=== PATIENT | male | born 1960 | race African-American/Black ===

== ENCOUNTER 2017-09-30 12:05 | Emergency (ER) | payer OTHER, SELFPAY ==
[2017-09-30 12:59] LABS: Absolute Lymphocytes (CBC) 1.4 K/uL (0.7-4.9); Absolute Monocytes 1.3 K/uL (0.1-1.3); Absolute Neutrophil 8.6 K/uL (1.8-8.0); Basophils % 0.3 % (0-1.3); Eosinophils % 0.8 % (0-4.4); Hematocrit 40.7 % (39.6-49.0); Lymphocytes % 12.1 % (15.3-44.8); MCH 28.7 pg (27.0-35.0); MCV 85.4 fL (80-100); MPV 7.6 fL (7.6-11.3); Monocytes % 11.6 % (3.3-12.3); RBC Red Blood Cell Count 4.76 M/uL (4.33-5.43)
--- NOTE | 2017-09-30 13:05 | RAD REPORT ---
EXAM DESCRIPTION: CT - Stone Protocol - 09/30/2017 12:54 pm CLINICAL HISTORY: Flank pain. flank pain COMPARISON: No comparisons TECHNIQUE: Axial images were obtained without oral or IV contrast. Lack of contrast limits solid org an and vascular assessment. The [id number] spans the entirety of the system partially obscuring uppermost abdomen and lung bases. Coronal reformatted images were obtained and reviewed. All CT scans are performed using dose optimization technique as appropriate and may include automated exposure control or mA/KV adjustment according to patient size. FINDINGS: The lower lung garcia are clear. Imaged portions of the liver and spleen show no suspicious findings on non-contrast imaging. The panc reas and adrenal glands are normal. Moderate enlargement of the left kidney is seen with moderate left hydronephrosis and hydroureter, ca used by a 8 mm stone (700 HU) in the distal left ureter. Several enlarged left-sided retroperitoneal lymph nodes are seen. Small nonobstructing 4 mm stone is present in the right kidney midpole. No bowel obstruction, free air, free fluid or abscess. Normal appendix noted.Colonic diverticulosis i s seen without diverticulitis. Aortic atherosclerosis. No significant bony abnormality. IMPRESSION: 8 mm stone (700 HU) in the distal left ureter resulting in moderate left hydroureter and hydronephrosis. 4 mm nonobstructive right renal calculus.
[2017-09-30 13:28] LABS: Albumin 2.5 g/dL (3.4-5.0); Bilirubin Direct 0.1 mg/dL (0-0.2); Bilirubin Total 0.4 mg/dL (0.2-1.0); Potassium 3.5 mmol/L (3.5-5.1); Protein, Total 8.3 g/dL (6.4-8.2)
[2017-09-30] MEDS ORDERED: TAMSULOSIN 0.4 MG SR CAP ONE (13:34)
[2017-09-30] MEDS ORDERED: KETOROLAC 30 MG/ML INJ ONE (13:34)
[2017-09-30] MEDS ORDERED: NA CHLORIDE 0.9% 1,000 ML ONE (13:34)
--- NOTE | 2017-09-30 14:58 | ER ---
Nurse's Notes [facility] Name: Jayant Alamo Age: 57 yrs Sex: Male : 1960 Arrival Date: 09/30/2017 Time: 12:11 Bed 8 Private MD: None, None Diagnosis: Hydronephrosis with renal and ureteral calculous obstruction-Left Presentation: 09/30 12:12 Presenting complaint: Patient states: i started feeling pain on my groin area, on my R hj and L lower abdomen area, reports fever and sweats; reports nausea and vomiting; reports constipation;. Transition of care: patient was not received from another setting of care. Onset of symptoms was September 30, 2017. Risk Assessment: Do you want to hurt yourself or someone else? Patient reports no desire to harm self or others. Initial Sepsis Screen: Does the patient meet any 2 criteria? No. Patient's initial sepsis screen is negative. Does the patient have a suspected source of infection? No. Patient's initial sepsis screen is negative. Care prior to arrival: None. 12:12 Method Of Arrival: Ambulatory 12:12 Acuity: JAIDA 3 hj Triage Assessment: 12:14 General: Appears in no apparent distress. uncomfortable, Behavior is calm, cooperative, hj appropriate for age. Pain: Complains of pain in right lower quadrant and left lower quadrant. GI: Reports lower abdominal pain, constipation, nausea, vomiting. Historical: - Allergies: 12:14 No Known Allergies; hj - Home Meds: 12:14 None [Active]; hj - PMHx: 12:14 Hypertension; Hyperlipidemia; heart problems; hj - PSHx: 12:14 Heart stents; hj - Immunization history:: Adult Immunizations not immunized. - Social history:: Smoking status: Patient uses tobacco products, smokes one-half pack cigarettes per day, Patient uses alcohol, on a daily basis. - Ebola Screening: : Patient negative for fever greater than or equal to 101.5 degrees Fahrenheit, and additional compatible Ebola Virus Disease symptoms Patient denies exposure to infectious person Patient denies travel to an Ebola-affected area in the 21 days before illness onset. Screenin:16 Abuse screen: Denies threats or abuse. Denies injuries from another. Nutritional hj screening: No deficits noted. Tuberculosis screening: No symptoms or risk factors identified. Fall Risk None identified. Assessment: 12:16 GI: Bowel sounds Abd is soft Abdomen is tender to palpation. hj 12:28 General: Appears in no apparent distress. uncomfortable, Behavior is calm, cooperative, aj1 appropriate for age. Pain: Complains of pain in anterior aspect of left lateral abdomen, posterior aspect of left lateral abdomen, left lower quadrant and left femoral area Pain does not radiate. Pain currently is 9 out of 10 on a pain scale. Quality of pain is described as stabbing. Neuro: Level of Consciousness is awake, alert, obeys commands, Oriented to person, place, time, situation, Speech is normal, Facial symmetry appears normal. Cardiovascular: Patient's skin is warm and dry. Respiratory: Airway is patent Respiratory effort is even, unlabored, Respiratory pattern is regular, symmetrical. GI: Abdomen is round Bowel sounds present X 4 quads. Abd is soft X 4 quads Abdomen is tender to palpation in left lower quadrant Reports constipation, nausea, vomiting, Last bowel movement 4 to 5 days ago. : Denies burning with urination, urinary frequency, urgency. EENT: No signs and/or symptoms were reported regarding the EENT system. Derm: No signs and/or symptoms reported regarding the dermatologic system. Skin is pink, warm \T\ dry. normal. Musculoskeletal: No signs and/or symptoms reported regarding the musculoskeletal system. Circulation, motion, and sensation intact. 12:52 Reassessment: Patient transported to [place] via wheelchair. aj1 13:30 Reassessment: Patient appears in no apparent distress at this time. No changes from aj1 previously documented assessment. Patient and/or family updated on plan of care and expected duration. Pain level reassessed. Patient is alert, oriented x 3, equal unlabored respirations, skin warm/dry/pink. Patient reports continued pain. Notified Mamie Cowan NP. Order received. 14:45 Reassessment: Patient appears in no apparent distress at this time. Patient and/or aj1 family updated on plan of care and expected duration. Pain level reassessed. Patient is alert, oriented x 3, equal unlabored respirations, skin warm/dry/pink. Patient states that he is feeling better since administration of IV Toradol. 15:45 Reassessment: Patient appears in no apparent distress at this time. No changes from aj1 previously documented assessment. Patient and/or family updated on plan of care and expected duration. Pain level reassessed. Patient is alert, oriented x 3, equal unlabored respirations, skin warm/dry/pink. Vital Signs: 12:15 BP 115 / 82; Pulse 93; Resp 18; Temp 97.6(TE); Pulse Ox 99% on R/A; Weight 90.72 kg; hj Height 6 ft. 2 in. (187.96 cm); Pain 9/10; 13:40 BP 119 / 79; Pulse 88; Resp 18; Pulse Ox 99% on R/A; aj1 14:45 BP 121 / 83; Pulse 81; Resp 18; Pulse Ox 95% on R/A; aj1 16:02 BP 117 / 62; Pulse 85; Resp 18; Pulse Ox 97% ; aj1 12:15 Body Mass Index 25.68 (90.72 kg, 187.96 cm) ED Course: 12:11 Patient arrived in ED. mr 12:11 None, None is Private Physician. mr 12:13 Triage completed. hj 12:16 Arm band placed on right wrist. hj 12:16 Patient has correct armband on for positive identification. hj 12:18 Paul Cowan, POOJA is PHCP. pm1 12:18 Amaury Smith MD is Attending Physician. pm1 12:22 Katelyn Diamond, RAMSES is Primary Nurse. aj1 12:28 No provider procedures requiring assistance completed. aj1 12:47 Initial lab(s) drawn, by sc, sent to lab. Inserted saline lock: 20 gauge in right aj1 antecubital area, using aseptic technique. Blood collected. 12:52 CT completed. Patient moved to CT via wheelchair. Patient moved back from CT. cw1 12:54 Stone Protocol In Process Unspecified. EDMS 14:57 Hunter No MD is Referral Physician. pm1 16:02 IV discontinued, intact, bleeding controlled, No redness/swelling at site. Pressure aj1 dressing applied. Administered Medications: 13:39 Drug: NS 0.9% 1000 ml Route: IV; Rate: 1000 ml; Site: right antecubital; aj1 16:02 Follow up: IV Status: Completed infusion; IV Intake: 1000ml aj1 13:39 Drug: TORadol 30 mg Route: IVP; Site: right antecubital; aj1 16:03 Follow up: Response: No adverse reaction aj1 13:40 Drug: Flomax 0.4 mg Route: PO; aj1 16:03 Follow up: Response: No adverse reaction aj1 16:00 Drug: Rocephin 1 grams Route: IV; Rate: calculated rate; Site: right antecubital; aj 16:03 Follow up: IV Status: Completed infusion; IV Intake: 10ml aj1 16:00 Drug: Ciprofloxacin 500 mg Route: PO; aj1 16:03 Follow up: Response: No adverse reaction aj1 Intake: 16:02 IV: 1000ml; Total: 1000ml. aj1 16:03 IV: 10ml; Total: 1010ml. aj1 Outcome: 14:58 Discharge ordered by MD. pm1 16:03 Discharged to home ambulatory. aj1 16:03 Condition: good 16:03 Discharge instructions given to patient, Instructed on discharge instructions, follow up and referral plans. no drinking with medication, no driving heavy equipment, medication usage, Demonstrated understanding of instructions, follow-up care, medications, Prescriptions given X 3. 16:04 Patient left the ED. aj1 Addendum: 10/03/2017 09:45 Addendum: Culture Results: Positive urine culture. No further action required. Bacteria s s sensitive to prescribed antibiotic. Signatures: Dispatcher [employer] EDMS Katelyn Diamond RN RN aj1 Jami Thompson Shelby, RN RN ss Woodley, Crystal 1 Rashawn Patricia RN RN hj Marinas, Patrick, POOJA OBSTETRICS TECHNICIAN pm1 Corrections: (The following items were deleted from the chart) 09/30 12:17 12:15 Pulse 93bpm; Resp 18bpm; Pulse Ox 99% RA; Temp 97.6F Temporal; 90.72 kg; Height 6 hj ft. 2 in.; BMI: 25.6; Pain 9/10; hj 12:18 12:15 Pulse 93bpm; Resp 18bpm; Pulse Ox 99% RA; Temp 97.6F Temporal; 90.72 kg; Height 6 hj ft. 2 in.; BMI: 25.6; Pain 9/10; hj
--- NOTE | 2017-09-30 14:58 | EDPHYS ---
Physician Documentation [facility] Name: Jayant Alamo Age: 57 yrs Sex: Male : 1960 Arrival Date: 09/30/2017 Time: 12:11 Bed 8 Private MD: None, None ED Physician Amaury mSith HPI: 09/30 16:00 This 57 yrs old Black Male presents to ER via Ambulatory with complaints of Left flank pm1 pain. 16:00 The patient complains of pain in the left low back. The pain does not radiate. Onset: pm1 The symptoms/episode began/occurred 5 day(s) ago. Modifying factors: The symptoms are alleviated by nothing. the symptoms are aggravated by nothing. Associated signs and symptoms: Pertinent negatives: dysuria, fever, nausea, vomiting. Severity of pain: in the emergency department the pain has improved. The patient has not experienced similar symptoms in the past. The patient has not recently seen a physician. Patient with left flank pain for 5 days. Patient reports improvement in pain from initial onset, however he wants to get his left flank pain evaluated prior to a trip to [place]. Historical: - Allergies: 12:14 No Known Allergies; hj - Home Meds: 12:14 None [Active]; hj - PMHx: 12:14 Hypertension; Hyperlipidemia; heart problems; hj - PSHx: 12:14 Heart stents; hj - Immunization history:: Adult Immunizations not immunized. - Social history:: Smoking status: Patient uses tobacco products, smokes one-half pack cigarettes per day, Patient uses alcohol, on a daily basis. - Ebola Screening: : Patient negative for fever greater than or equal to 101.5 degrees Fahrenheit, and additional compatible Ebola Virus Disease symptoms Patient denies exposure to infectious person Patient denies travel to an Ebola-affected area in the 21 days before illness onset. ROS: 16:00 Constitutional: Negative for fever, chills, and weight loss, Eyes: Negative for injury, pm1 pain, redness, and discharge, ENT: Negative for injury, pain, and discharge, Neck: Negative for injury, pain, and swelling, Cardiovascular: Negative for chest pain, palpitations, and edema, Respiratory: Negative for shortness of breath, cough, wheezing, and pleuritic chest pain, Abdomen/GI: Negative for abdominal pain, nausea, vomiting, diarrhea, and constipation. 16:00 : Negative for injury, bleeding, discharge, and swelling, MS/Extremity: Negative for injury and deformity, Skin: Negative for injury, rash, and discoloration, Neuro: Negative for headache, weakness, numbness, tingling, and seizure. 16:00 Back: Positive for flank pain, on the left, Negative for injury or acute deformity, decreased range of motion. Exam: 16:00 Constitutional: This is a well developed, well nourished patient who is awake, alert, pm1 and in no acute distress. Head/Face: Normocephalic, atraumatic. Eyes: Pupils equal round and reactive to light, extra-ocular motions intact. Lids and lashes normal. Conjunctiva and sclera are non-icteric and not injected. Cornea within normal limits. Periorbital areas with no swelling, redness, or edema. ENT: Nares patent. No nasal discharge, no septal abnormalities noted. Tympanic membranes are normal and external auditory canals are clear. Oropharynx with no redness, swelling, or masses, exudates, or evidence of obstruction, uvula midline. Mucous membranes moist. Neck: Trachea midline, no thyromegaly or masses palpated, and no cervical lymphadenopathy. Supple, full range of motion without nuchal rigidity, or vertebral point tenderness. No Meningismus. Chest/axilla: Normal chest wall appearance and motion. Nontender with no deformity. No lesions are appreciated. Cardiovascular: Regular rate and rhythm with a normal S1 and S2. No gallops, murmurs, or rubs. Normal PMI, no JVD. No pulse deficits. Respiratory: Lungs have equal breath sounds bilaterally, clear to auscultation and percussion. No rales, rhonchi or wheezes noted. No increased work of breathing, no retractions or nasal flaring. Abdomen/GI: Soft, non-tender, with normal bowel sounds. No distension or tympany. No guarding or rebound. No evidence of tenderness throughout. 16:00 Skin: Warm, dry with normal turgor. Normal color with no rashes, no lesions, and no evidence of cellulitis. MS/ Extremity: Pulses equal, no cyanosis. Neurovascular intact. Full, normal range of motion. 16:00 Back: pain, is absent, ROM is normal, normal spinal alignment noted, CVA tenderness, that is mild, is noted on the left, vertebral tenderness, is not appreciated, muscle spasm, is not present. 16:00 Neuro: Orientation: is normal, Motor: is normal, moves all fours, Gait: is steady, at a normal pace, without difficulty. Vital Signs: 12:15 BP 115 / 82; Pulse 93; Resp 18; Temp 97.6(TE); Pulse Ox 99% on R/A; Weight 90.72 kg; hj Height 6 ft. 2 in. (187.96 cm); Pain 9/10; 13:40 BP 119 / 79; Pulse 88; Resp 18; Pulse Ox 99% on R/A; aj1 14:45 BP 121 / 83; Pulse 81; Resp 18; Pulse Ox 95% on R/A; aj1 16:02 BP 117 / 62; Pulse 85; Resp 18; Pulse Ox 97% ; aj1 12:15 Body Mass Index 25.68 (90.72 kg, 187.96 cm) MDM: 12:27 Patient medically screened. pm1 14:55 Data reviewed: vital signs. Data interpreted: Pulse oximetry: on room air is 95 %. pm1 Interpretation: normal. 14:55 Counseling: I had a detailed discussion with the patient and/or guardian regarding: the pm1 historical points, exam findings, and any diagnostic results supporting the discharge/admit diagnosis, lab results, radiology results, the need for further work-up and treatment in the hospital, due to 8 mm kidney stone. 14:55 Refusal of service: The patient/guardian displays adequate decision making capability pm1 and despite a detailed discussion of alternatives, benefits, risks, and consequences refuses: Admission to the hospital for further work-up and treatment, Patient wants to go home to try to pass the stone himself. Patient has a trip planned with his brother to go out of state. 09/30 12:30 Order name: Urine Microscopic Only; Complete Time: 18:05 pm1 09/30 12:43 Order name: Basic Metabolic Panel; Complete Time: 13:29 EDID 09/30 12:43 Order name: Stone Protocol; Complete Time: 13:29 EDMS 09/30 12:43 Order name: CBC with Automated Diff; Complete Time: 13:29 EDID 09/30 12:43 Order name: Lipase; Complete Time: 13:29 EDMS 09/30 12:43 Order name: Liver (Hepatic) Function; Complete Time: 13:29 [facility] 09/30 15:25 Order name: Urine Dipstick--Ancillary (enter results); Complete Time: 18:05 sp 09/30 15:48 Order name: Urine Culture [facility] 09/30 12:30 Order name: IV Saline Lock; Complete Time: 12:51 pm1 09/30 12:30 Order name: Labs collected and sent; Complete Time: 12:51 pm 09/30 12:30 Order name: Urine Dipstick-Ancillary (obtain specimen); Complete Time: 12:51 pm1 Administered Medications: 13:39 Drug: NS 0.9% 1000 ml Route: IV; Rate: 1000 ml; Site: right antecubital; [facility] 16:02 Follow up: IV Status: Completed infusion; IV Intake: 1000ml [facility] 13:39 Drug: TORadol 30 mg Route: IVP; Site: right antecubital; aj 16:03 Follow up: Response: No adverse reaction [facility] 13:40 Drug: Flomax 0.4 mg Route: PO; aj1 16:03 Follow up: Response: No adverse reaction [facility] 16:00 Drug: Rocephin 1 grams Route: IV; Rate: calculated rate; Site: right antecubital; aj 16:03 Follow up: IV Status: Completed infusion; IV Intake: 10ml aj 16:00 Drug: Ciprofloxacin 500 mg Route: PO; aj1 16:03 Follow up: Response: No adverse reaction [facility] Disposition: 17:28 Co-signature as Attending Physician, Amaury Smith MD I agree with the assessment and kdr plan of care. Disposition: 09/30/17 14:58 Discharged to Home. Impression: Hydronephrosis with renal and ureteral calculous obstruction - Left. - Condition is Stable. - Discharge Instructions: Kidney Stones, Hydronephrosis, Dietary Guidelines to Help Prevent Kidney Stones. - Prescriptions for Tylenol- Codeine #3 300-30 mg Oral Tablet - take 2 tablets by ORAL route every 6 hours As needed; 20 tablet. Flomax 0.4 mg Oral Capsule, Sust. Release 24 hr - take 1 capsule by ORAL route once daily 1/2 hour following the same meal each day; 30 capsule. Cipro 500 mg Oral Tablet - take 1 tablet by ORAL route every 12 hours for 10 days; 20 tablet. - Medication Reconciliation Form, Thank You Letter, Antibiotic Education, Prescription Opioid Use form. - Follow up: Emergency Department; When: As needed; Reason: Worsening of condition. Follow up: Hunter No MD; When: 1 - 2 days; Reason: Recheck today's complaints, Continuance of care, Re-evaluation by your physician. - Problem is new. - Symptoms have improved. Signatures: Dispatcher [employer] EDID Katelyn Diamond RN RN aj1 Amaury Smith MD MD [facility] Rashawn Patricia RN RN hj Paul Cowan, REAL ESTATE PHOTOGRAPHER REAL ESTATE PHOTOGRAPHER pm1 Corrections: (The following items were deleted from the chart) 13:20 13:14 Stone Protocol+CT.RAD.BRZ ordered. EDID EDMS 14:55 13:14 BASIC METABOLIC PANEL+C.LAB.BRZ ordered. EDID EDMS 14:55 13:14 CBC+H.LAB.BRZ ordered. EDID EDMS 14:55 13:14 HEPATIC FUNCTION+C.LAB.BRZ ordered. EDID EDMS 14:55 13:14 LIPASE+C.LAB.BRZ ordered. EDID EDMS 16:04 14:58 09/30/2017 14:58 Discharged to Home. Impression: Hydronephrosis with renal and aj1 ureteral calculous obstruction - Left. Condition is Stable. Forms are Medication Reconciliation Form, Thank You Letter, Antibiotic Education, Prescription Opioid Use. Follow up: Emergency Department; When: As needed; Reason: Worsening of condition. Follow up: Hunter No; When: 1 - 2 days; Reason: Recheck today's complaints, Continuance of care, Re-evaluation by your physician. Problem is new. Symptoms have improved. pm1
[2017-09-30 15:47] LABS: Urine Blood 2+ (NEG); Urine Glucose NEGATIVE (NEG); Urine Protein 1+ (NEG); Urine pH 5.5 (5.0-7.0)
[2017-09-30 15:47] LABS: Urine Bacteria >50 /HPF (NONE SEEN); Urine Culture Reflex Order REFLEXED; Urine RBC 20-50 /HPF (NONE SEEN)
[2017-09-30] MEDS ORDERED: CIPROFLOXACIN HCL 500 MG TAB ONE (15:56)
[2017-09-30] MEDS ORDERED: CEFTRIAXONE/SWI 1gm 1 GM/10 ML SYR ONE (15:56)
== END 2017-09-30 16:04 | disposition home or self-care (01) ==
LOC: ER 12:05
DX: N13.2 Hydronephrosis with renal and ureteral calculous obstruction (principal); I10 Essential (primary) hypertension; F17.210 Nicotine dependence, cigarettes, uncomplicated; Z95.818 Presence of other cardiac implants and grafts
CPT/HCPCS: 36415; 74176; 76377; 80048; 80076; 83690; 85025; 87077; 87086; 87088; 87186; 96361; 96374; 96375; 99284; J0696; J7030; 81003; 81015

== ENCOUNTER 2020-01-21 08:52 | Day surgery (SDC) | payer OTHER ==
[2020-01-21 09:26] LABS: Absolute Lymphocytes (CBC) 1.3 K/uL (0.7-4.9); Basophils % 0.8 % (0-1.3); Hematocrit 30.1 % (39.6-49.0); Lymphocytes % 14.7 % (15.3-44.8); MPV 7.3 fL (7.6-11.3); RBC Red Blood Cell Count 3.84 M/uL (4.33-5.43)
[2020-01-21] MEDS ORDERED: Ringers Lactate 1,000 ML IV ONE (09:26)
[2020-01-21] MEDS ORDERED: CEFAZOLIN/SWI 1gm 1 GM/10 ML SYR ONE (09:26)
[2020-01-21] MEDS ORDERED: MIDAZOLAM HCL 2 MG/2 ML INJ ONE (09:53)
[2020-01-21] MEDS ORDERED: propofoL 200 MG/20 ML VIAL IV ONE (09:53)
[2020-01-21] MEDS ORDERED: LIDOCAINE 1% MPF 5 ML VIAL ONE (09:53)
[2020-01-21] MEDS ORDERED: FENTANYL CITR 100 MCG/2 ML ONE (09:53)
[2020-01-21 09:55] VITALS: O2SAT 100
[2020-01-21 10:17] LABS: Anisocytosis 1+; Blood Morphology Comment NOTED (NOT SEEN); Macrocytosis SLIGHT; Platelet Estimate ADEQ
[2020-01-21] MEDS ORDERED: Phenylephrine HCl 10 MG/ML 1 ML VIAL ONE (10:32)
[2020-01-21] MEDS ORDERED: NS 0.9% VIAL 10 ML ONE (10:32)
[2020-01-21] MEDS ORDERED: KETOROLAC 30 MG/ML INJ ONE (10:53)
[2020-01-21] MEDS ORDERED: ONDANSETRON 4 MG/2 ML VIAL ONE (10:53)
[2020-01-21] MEDS ORDERED: dexAMETHasone 4 MG/ML VIAL ONE (10:54)
[2020-01-21] MEDS ORDERED: Mastisol Adhesive Liq ONE (11:06)
--- NOTE | 2020-01-21 11:12 | RAD REPORT ---
EXAM DESCRIPTION: RAD - Fluoroscopy <1 Hour - 01/21/2020 11:03 am CLINICAL HISTORY: Venous catheter insertion. PORT A CATH COMPARISON: No comparisons FINDINGS: Fluoroscopic imaging is submitted from placement of a venous catheter. Details of the pro cedure not available. Fluoroscopy time: 0.6 seconds
--- NOTE | 2020-01-21 11:44 | RAD REPORT ---
EXAM DESCRIPTION: RAD - Chest Single View - 01/21/2020 11:32 am CLINICAL HISTORY: S/P PORT A CATH PLACEMENT Chest pain. COMPARISON: No comparisons FINDINGS: Portable technique limits examination quality. Right-sided Port-A-Cath has been placed. Tip is in the SVC. No postprocedure pneumothorax.
[2020-01-21] MEDS ORDERED: PROMETHAZINE INJ 25 MG/ML AMP ONE (11:48)
[2020-01-21] MEDS ORDERED: MORPHINE 4 MG/ML SYR ONE (11:48)
[2020-01-21] MEDS ORDERED: CODEINE 30MG/APAP 300MG TAB PO ONE (12:07)
--- NOTE | 2020-01-21 12:07 | OP ---
Date of Procedure: 01/21/2020 Surgeon: Jonathan Kline MD Ruby Rails Developer: None. Preoperative Diagnosis: Stomach cancer. Postoperative Diagnosis: Stomach cancer. Procedure: Placement of right IJ Port-A-Cath and interpretation of intraoperative fluoroscopy. Estimated Blood Loss: Minimal. Specimen: None. Findings: Normal anatomy. Anesthesia: General. Complications: None. Condition: The patient tolerated the procedure well in stable condition and taken to Recovery in goo d general condition. Procedure In Detail: The patient was brought to the OR and placed in supine position. General anest hesia was begun. The patient was prepped and draped in the usual sterile fashion. Marcaine 0.5% inf iltrated locally. An 18-gauge needle was used to access the right IJ vein. Guidewire was passed. P osition was confirmed with fluoroscopy. A 3 cm counterincision was made on the right anterior chest and a pocket created. Tunneling device was used to tunnel the catheter between the 2 wounds and then Seldinger technique was used. Tip of the catheter was placed at the SVC right atrial junction. The n, the catheter was cut to appropriate size and attached to the Port-A-Cath device. Port-A-Cath salomon ce was attached to the subcutaneous tissue with 3-0 Vicryl. Port was flushed with heparin and packed with heparin with good blood flow and then 3-0 chromic was used to reapproximate the subcutaneous ti ssues and close the skin. Sterile dressing was applied. The patient was awakened and taken to [facility] in good general condition. Discharge Note: The patient will get a chest x-ray in Recovery if okay. The patient will be dischar ged to home. Disposition: Home. Condition: Stable. Discharge Instructions: Resume home medications and diet. Activity as tolerated. No heavy lifting. Remove outer dressing in 2 days. Shower. Keep Steri-Strips on at all times. Follow up in [facility] in 2 weeks. Call for appointment. Follow up with cancer Center. Tylenol No. 3 one tablet p.o. q .4 p.r.n. pain. /MODL Voice ID: [id number] Report ID: [id number]
[2020-01-21] MEDS ORDERED: CODEINE 30MG/APAP 300MG TAB ONE (12:18)
[2020-01-21 13:43] VITALS: TEMP 97
[2020-01-21 13:44] VITALS: BP 105/72
== END 2020-01-21 12:35 | disposition home or self-care (01) ==
LOC: OR 08:52
PROVIDERS: ATTEND Surgery
PROC: 05HM33Z Insertion of Infusion Device into Right Internal Jugular Vein, Percutaneous Approach (ICD-10-PCS; principal; 2020-01-21 10:00)
DX: C16.9 Malignant neoplasm of stomach, unspecified (principal)
CPT/HCPCS: 85025; 36415; 71045; 36561; J2704; J1100; J2550; J2370; J3010; J0690; J7120; J2405; C1788; 76000; J2250

== ENCOUNTER 2020-04-09 03:00 | Inpatient (IN) | payer OTHER ==
--- OUTSIDE RECORDS SUMMARY | 2020-04-09 03:04 | XMS REPORT | Continuity of Care Document ---
:1960 Author Organization [facility] t Address [address] [place] [address] Care Team Providers Name Role Phone Unavailable Unavailable Unavailable Problems This patient has no known problems. Allergies, Adverse Reactions, Alerts This patient has no known allergies or adverse reactions. Medications This patient has no known medications. Procedures This patient has no known procedures. Encounters Start End Encounter Admission Attending Care Care Encounter Source Date/Time Date/Time Type Type Clinicians Facility Department ID 2020-02-19 2020-02-19 Outpatient [facility] [id number] [facility] 00:00:00 00:00:00 [facility] ent Clinics 2020-01-22 2020-01-22 Outpatient [facility] [id number] [facility] 00:[facility] 00:00:00 [facility] ent Clinics Results This patient has no known results.
[2020-04-09] MEDS ORDERED: ONDANSETRON 4 MG/2 ML VIAL ONE (04:19)
[2020-04-09] MEDS ORDERED: MORPHINE 2 MG/ML SYR ONE (04:19)
[2020-04-09 04:33] LABS: Absolute Lymphocytes (CBC) 0.4 K/uL (0.7-4.9); Basophils % 0.2 % (0-1.3); Hematocrit 34.9 % (39.6-49.0); Lymphocytes % 8.8 % (15.3-44.8); Protime INR 1.19; RBC Red Blood Cell Count 4.02 M/uL (4.33-5.43)
[2020-04-09 04:57] LABS: ALT/SGPT 22 U/L (12-78); AST/SGOT 25 U/L (15-37); Albumin 2.4 g/dL (3.4-5.0); Alkaline Phosphatase 100 U/L (45-117); BUN Blood Urea Nitrogen 16 mg/dL (7-18); Bicarbonate 31 mmol/L (21-32); Bilirubin Direct < 0.1 mg/dL (0-0.2); Bilirubin Total 0.2 mg/dL (0.2-1.0); Glucose Level 100 mg/dL (74-106); Lipase 41 U/L (73-393); Magnesium 2.7 mg/dL (1.8-2.4); NT PRO-BNP 7893 pg/mL (<125); Potassium 3.9 mmol/L (3.5-5.1); Protein, Total 6.5 g/dL (6.4-8.2); Sodium Level 149 mmol/L (136-145); Troponin (Emerg Dept Use Only) 0.09 ng/mL (0.0-0.045)
[2020-04-09 05:38] LABS: Anisocytosis 2+; Blood Morphology Comment NOTED (NOT SEEN); Platelet Estimate ADEQ; White Blood Cell Scan OK (OK)
--- NOTE | 2020-04-09 06:44 | EDPHYS ---
Physician Documentation [facility] Name: Jayant Alamo Age: 60 yrs Sex: Male : 1960 Arrival Date: 04/09/2020 Time: 03:00 Bed 7 Private MD: ED Physician Larry Whiteside HPI: 04/09 03:55 This 60 yrs old Black Male presents to ER via Ambulatory with complaints of Shortness mh7 Of Breath, Chest Pain. 03:55 The patient or guardian reports chest pain that is located primarily in the substernal mh7 area. Onset: today. The pain does not radiate. Associated signs and symptoms: Pertinent positives: cough, shortness of breath, Pertinent negatives: abdominal pain, diaphoresis, dizziness, headache, lower extremity pain, lower extremity swelling, lightheadedness, nausea, near syncope, palpitations, recent travel, syncope, vomiting. The chest pain is described as tightness. Duration: The patient or guardian reports multiple episodes, that are intermittent, that wax and wane. Modifying factors: The symptoms are alleviated by nothing. the symptoms are aggravated by nothing. Severity of pain: At its worst the pain was moderate today, in the emergency department the pain has improved moderately. Historical: - Allergies: 03:47 No Known Allergies; ea - PMHx: 03:47 Hypertension; heart problems; Hyperlipidemia; stomach cancer; ea - PSHx: 03:47 Heart stents; ea - Immunization history:: Adult Immunizations up to date. - Social history:: Smoking status: Patient reports the use of cigarette tobacco products, smokes one-half pack cigarettes per day. ROS: 03:55 Constitutional: Negative for fever, chills, and weight loss, Eyes: Negative for injury, mh7 pain, redness, and discharge, ENT: Negative for injury, pain, and discharge, Neck: Negative for injury, pain, and swelling, Abdomen/GI: Negative for abdominal pain, nausea, vomiting, diarrhea, and constipation, Back: Negative for injury and pain, : Negative for injury, bleeding, discharge, and swelling, MS/Extremity: Negative for injury and deformity, Skin: Negative for injury, rash, and discoloration, Neuro: Negative for headache, weakness, numbness, tingling, and seizure, Psych: Negative for depression, anxiety, suicide ideation, homicidal ideation, and hallucinations, Allergy/Immunology: Negative for hives, rash, and allergies, Endocrine: Negative for neck swelling, polydipsia, polyuria, polyphagia, and marked weight changes, Hematologic/Lymphatic: Negative for swollen nodes, abnormal bleeding, and unusual bruising. Exam: 03:55 Constitutional: This is a well developed, well nourished patient who is awake, alert, mh7 and in no acute distress. Head/Face: Normocephalic, atraumatic. Eyes: Pupils equal round and reactive to light, extra-ocular motions intact. Lids and lashes normal. Conjunctiva and sclera are non-icteric and not injected. Cornea within normal limits. Periorbital areas with no swelling, redness, or edema. Neck: Trachea midline, no thyromegaly or masses palpated, and no cervical lymphadenopathy. Supple, full range of motion without nuchal rigidity, or vertebral point tenderness. No Meningismus. Chest/axilla: Normal chest wall appearance and motion. Nontender with no deformity. No lesions are appreciated. Cardiovascular: Regular rate and rhythm with a normal S1 and S2. No gallops, murmurs, or rubs. Normal PMI, no JVD. No pulse deficits. 03:55 Back: No spinal tenderness. No costovertebral tenderness. Full range of motion. Skin: Warm, dry with normal turgor. Normal color with no rashes, no lesions, and no evidence of cellulitis. MS/ Extremity: Pulses equal, no cyanosis. Neurovascular intact. Full, normal range of motion. Neuro: Awake and alert, GCS 15, oriented to person, place, time, and situation. Cranial nerves II-XII grossly intact. Motor strength 5/5 in all extremities. Sensory grossly intact. Cerebellar exam normal. Normal gait. Psych: Awake, alert, with orientation to person, place and time. Behavior, mood, and affect are within normal limits. 03:55 Respiratory: the patient does not display signs of respiratory distress, Respirations: normal, Breath sounds: rhonchi, that are mild, are scattered, Respiratory rate: 18 06:38 ECG was reviewed by the Attending Physician. manuel Vital Signs: 03:43 BP 106 / 81; Pulse 93; Resp 19; Temp 98.2; Pulse Ox 95% on R/A; Weight 68.04 kg; Height ea 6 ft. 2 in. (187.96 cm); Pain 9/10; 07:00 BP 109 / 86; Pulse 94; Resp 19; Pulse Ox 94% on R/A; rb3 08:00 BP 101 / 86; Pulse 99; Resp 18; Pulse Ox 92% ; rb3 08:58 BP 101 / 84; Pulse 107; Resp 19; Pulse Ox 95% on R/A; rb3 09:58 BP 106 / 83; Pulse 95; Resp 17; Pulse Ox 95% ; rb3 11:00 BP 100 / 83; Pulse 95; Resp 18; Pulse Ox 94% ; rb3 12:00 BP 110 / 92; Pulse 91; Resp 16; Pulse Ox 93% ; rb3 13:00 BP 113 / 87; Pulse 96; Resp 19; Pulse Ox 94% ; rb3 14:00 BP 111 / 85; Pulse 108; Resp 18; Pulse Ox 92% ; rb3 15:00 BP 104 / 81; Pulse 94; Resp 17; Pulse Ox 94% ; rb3 16:00 BP 109 / 83; Pulse 91; Resp 17; Pulse Ox 94% ; rb3 03:43 Body Mass Index 19.26 (68.04 kg, 187.96 cm) ea MDM: 06:23 Patient medically screened. manuel 06:53 Differential diagnosis: abnormal EKG, coronary artery disease hiatal hernia, pleurisy, manuel pulmonary embolus, stable angina, unstable angina. HEART Score: History: Moderately Suspicious (1), ECG: Non specific repolarization disturbance / LBTB / PM (1), Age: > 45 and < 65 years (1), Risk Factors: > or = 3 Risk factors for atherosclerotic disease (2), [Hypercholesterolemia] [Hypertension] [+ Family HX] Troponin: < or = 1 x Normal Limit (0). The patient was not given aspirin in the Emergency Department. Not indicated due to patient's past medical history. The patient's deep vein thrombosis risk score was calculated as follows: Total Score: 0. This patient was found to be at low risk for a deep vein thrombosis by using the Well's assessment criteria. The patient's pulmonary embolism risk score was calculated as follows: malignancy Total Score: 0-2 points. This patient was found to be at low risk for a pulmonary embolism by using the Well's assessment criteria. ADALGISA Risk Score: 1 - Three or more CAD risk factors, 1- Known CAD, 1 - Elevated Cardiac Markers, TOTAL SCORE = 3. Data reviewed: vital signs, nurses notes, lab test result(s), EKG, radiologic studies, CT scan, plain films. Data interpreted: playground monitor: rate is 93 beats/min, rhythm is regular, Pulse oximetry: on room air is 95 %. Test interpretation: by ED physician or midlevel provider: ECG, plain radiologic studies. Counseling: I had a detailed discussion with the patient and/or guardian regarding: the historical points, exam findings, and any diagnostic results supporting the discharge/admit diagnosis, lab results, radiology results, the need for further work-up and treatment in the hospital. 04/09 03:46 Order name: Basic Metabolic Panel; Complete Time: 04:59 7 04/09 03:46 Order name: CBC with Diff; Complete Time: 05:51 7 04/09 03:46 Order name: LFT's; Complete Time: 04:59 7 04/09 03:46 Order name: Magnesium; Complete Time: 04:59 7 04/09 03:46 Order name: NT PRO-BNP; Complete Time: 04:59 7 04/09 03:46 Order name: PT-INR; Complete Time: 04:59 7 04/09 03:46 Order name: Troponin (emerg Dept Use Only); Complete Time: 04:59 7 04/09 03:46 Order name: Lipase; Complete Time: 04:59 7 04/09 04:48 Order name: CBC Smear Scan; Complete Time: 05:51 [facility] 04/09 06:37 Order name: Blood Culture Adult (2) [facility] 04/09 06:37 Order name: COVID-19 [facility] 04/09 07:02 Order name: C-Reactive Protein [facility] 04/09 07:02 Order name: D-Dimer [facility] 04/09 07:02 Order name: Ferritin [facility] 04/09 07:02 Order name: Lactate [facility] 04/09 07:02 Order name: Lactic Dehydrogenase [facility] 04/09 07:02 Order name: Procalcitonin [facility] 04/09 07:02 Order name: Troponin I [facility] 04/09 07:09 Order name: CBC with Automated Diff [facility] 04/09 07:09 Order name: CBC with Automated Diff [facility] 04/09 07:09 Order name: Comprehensive Metabolic Panel [facility] 04/09 07:09 Order name: Comprehensive Metabolic Panel [facility] 04/09 07:09 Order name: Lactate [facility] 04/09 07:09 Order name: Lactate [facility] 04/09 07:09 Order name: Lipid Profile [facility] 04/09 07:09 Order name: Lipid Profile [facility] 04/09 07:09 Order name: Magnesium [facility] 04/09 07:09 Order name: Magnesium [facility] 04/09 07:09 Order name: NT PRO-BNP [facility] 04/09 07:09 Order name: NT PRO-BNP [facility] 04/09 03:46 Order name: XRAY Chest (1 view) [facility] 04/09 03:46 Order name: EKG; Complete Time: 03:47 [facility] 04/09 03:46 Order name: Cardiac monitoring; Complete Time: 04:17 [facility] 04/09 03:46 Order name: EKG - Nurse/Tech; Complete Time: 03:54 [facility] 04/09 03:46 Order name: IV Saline Lock; Complete Time: 04:19 [facility] 04/09 03:46 Order name: Labs collected and sent; Complete Time: 04:17 [facility] 04/09 03:46 Order name: O2 Per Protocol; Complete Time: 03:54 [facility] 04/09 03:46 Order name: O2 Sat Monitoring; Complete Time: 03:54 [facility] 04/09 05:52 Order name: CT Chest For PE Angio [facility] 04/09 07:09 Order name: CONS Physician Consult [facility] 04/09 07:09 Order name: CONS Physician Consult [facility] 04/09 07:09 Order name: Heart Healthy [facility] 04/09 07:09 Order name: Phosphorus [facility] 04/09 07:09 Order name: Phosphorus [facility] 04/09 07:09 Order name: Troponin I [facility] 04/09 07:09 Order name: Troponin I [facility] 04/09 07:09 Order name: Troponin I [facility] 04/09 07:11 Order name: C-Reactive Protein [facility] 04/09 07:11 Order name: Ferritin [facility] 04/09 09:50 Order name: SARS-COV-2 RT PCR EDPR EC:38 Rate is 94 beats/min. Rhythm is regular. QRS [place] is Normal. [place] interval is normal. QRS manuel interval is normal. QT interval is prolonged at 515 msec. No Q waves. T waves are Normal. Clinical impression: NSR w/ Non-specific ST/T Changes. Administered Medications: 04:17 Drug: morphine 2 mg Route: IVP; Site: right antecubital; rv 07:05 Follow up: Response: No adverse reaction; Marked relief of symptoms; Pain is decreased; rv RASS: Alert and Calm (0) 04:17 Drug: Zofran (Ondansetron) 4 mg Route: IVP; Site: right antecubital; rv 07:05 Follow up: Response: No adverse reaction rv 06:43 Not Given (Duplicate Order): Aspirin 162 mg PO once manuel 06:43 Not Given (Duplicate Order): Lovenox 70 mg Sub-Q once manuel 07:04 Drug: Pepcid 20 mg Route: IVP; Site: right antecubital; rv 07:05 Follow up: Response: No adverse reaction rv 07:04 Drug: Rocephin 1 grams Route: IV; Rate: per protocol; Site: right antecubital; rv 07:30 Follow up: Response: No adverse reaction; IV Status: Completed infusion rb3 07:04 Drug: Zithromax 500 mg Route: IVPB; Infused Over: 1 hrs; Site: right antecubital; rv 08:10 Follow up: Response: No adverse reaction; IV Status: Completed infusion rb3 07:04 Drug: Eliquis 5 mg Route: PO; rv 07:35 Follow up: Response: No adverse reaction rb3 09:04 Not Given (Javier held medication due to BP 103/79): Lopressor 25 mg PO once rb3 09:04 Not Given (BP 101/86): Lasix 20 mg IVP once rb3 Disposition: 06:53 Critical Care:. [facility] Disposition: 04/09/20 06:43 Hospitalization ordered by Roxann Block for Inpatient Admission. Preliminary diagnosis are Chest pain, unspecified, Pneumonia, unspecified organism - diffuse right lung, interstitial, Dyspnea, Unspecified diastolic (congestive) heart failure, Pleural effusion in conditions classified elsewhere, Cardiomegaly. - Bed requested for Telemetry/MedSurg (Inpatient). - Status is Inpatient Admission. rb3 - Condition is Fair. - Problem is new. - Symptoms have improved. Critical care time excluding procedures: 06:53 Critical care time: Bedside Care: 20 minutes, Consultation: 10 minutes. Total time: 30 manuel minutes Signatures: Dispatcher [employer] EDMS Larry Whiteside MD MD cha Williams, Irene, RN RN iw Brandon, Abraham em1 Nelda Hendrix, RN Bud Beck ea, RN RN Gino Pineda MD MD [facility] Mirna Beard RN RN rb3 Corrections: (The following items were deleted from the chart) 06:57 06:43 Hospitalization Ordered by Roxann Block MD for Inpatient Admission. Preliminary [facility] diagnosis is Chest pain, unspecified; Pneumonia, unspecified organism - diffuse right lung, interstitial; Dyspnea. Bed requested for Telemetry/MedSurg (Inpatient). Status is Inpatient Admission. Condition is Fair. Problem is new. Symptoms have improved. [facility] 12:16 06:57 04/09/2020 06:43 Hospitalization Ordered by Roxann Block MD for Inpatient iw Admission. Preliminary diagnosis is Chest pain, unspecified; Pneumonia, unspecified organism - diffuse right lung, interstitial; Dyspnea; Unspecified diastolic (congestive) heart failure; Pleural effusion in conditions classified elsewhere; Cardiomegaly. Bed requested for Telemetry/MedSurg (Inpatient). Status is Inpatient Admission. Condition is Fair. Problem is new. Symptoms have improved. [facility] 15:32 12:16 04/09/2020 06:43 Hospitalization Ordered by Roxann Block MD for Inpatient em1 Admission. Preliminary diagnosis is Chest pain, unspecified; Pneumonia, unspecified organism - diffuse right lung, interstitial; Dyspnea; Unspecified diastolic (congestive) heart failure; Pleural effusion in conditions classified elsewhere; Cardiomegaly. Bed requested for [facility] ER HOLD. Status is Inpatient Admission. Condition is Fair. Problem is new. Symptoms have improved. 16:56 15:32 04/09/2020 06:43 Hospitalization Ordered by Roxann Block MD for Inpatient rb3 Admission. Preliminary diagnosis is Chest pain, unspecified; Pneumonia, unspecified organism - diffuse right lung, interstitial; Dyspnea; Unspecified diastolic (congestive) heart failure; Pleural effusion in conditions classified elsewhere; Cardiomegaly. Bed requested for Telemetry/MedSurg (Inpatient). Status is Inpatient Admission. Condition is Fair. Problem is new. Symptoms have improved. em1
--- NOTE | 2020-04-09 06:44 | ER ---
Nurse's Notes [facility] Name: aJyant Alamo Age: 60 yrs Sex: Male : 1960 Arrival Date: 04/09/2020 Time: 03:00 Bed 7 Private MD: Diagnosis: Chest pain, unspecified;Pneumonia, unspecified organism-diffuse right lung, interstitial;Dyspnea;Unspecified diastolic (congestive) heart failure;Pleural effusion in conditions classified elsewhere;Cardiomegaly Presentation: 04/09 03:43 Chief complaint: Patient states: Reports he started having chest pressure, SOB and ea congestion that started after his chemo. Pt reports pain /. Coronavirus screen: At this time, the client does not indicate any symptoms associated with coronavirus-19. Ebola Screen: No symptoms or risks identified at this time. Initial Sepsis Screen: Does the patient meet any 2 criteria? No. Patient's initial sepsis screen is negative. Does the patient have a suspected source of infection? No. Patient's initial sepsis screen is negative. Risk Assessment: Do you want to hurt yourself or someone else? Patient reports no desire to harm self or others. Onset of symptoms was April 09, 2020. 03:43 Method Of Arrival: Ambulatory ea 03:43 Acuity: JAIDA 3 ea Triage Assessment: 03:48 General: Appears uncomfortable, Behavior is appropriate for age. Pain: Complains of ea pain in chest. Respiratory: Reports shortness of breath Onset: The symptoms/episode began/occurred today, the patient has mild shortness of breath. Historical: - Allergies: 03:47 No Known Allergies; ea - PMHx: 03:47 Hypertension; heart problems; Hyperlipidemia; stomach cancer; ea - PSHx: 03:47 Heart stents; ea - Immunization history:: Adult Immunizations up to date. - Social history:: Smoking status: Patient reports the use of cigarette tobacco products, smokes one-half pack cigarettes per day. Screenin:46 Abuse screen: Denies threats or abuse. Nutritional screening: No deficits noted. ea Tuberculosis screening: No symptoms or risk factors identified. Fall Risk None identified. Assessment: 04:15 Cardiovascular: Rhythm is regular. Respiratory: Airway is patent Respiratory effort is rv even, unlabored, Breath sounds are coarse bilaterally. 07:03 General: Appears in no apparent distress. comfortable, Behavior is calm, cooperative. rb3 Pain: Complains of pain in chest. Neuro: Level of Consciousness is awake, alert, obeys commands, Oriented to person, place, time, situation. Cardiovascular:. Respiratory: Airway is patent Respiratory effort is even, unlabored, Respiratory pattern is regular, symmetrical. Derm: Skin is dry, Skin is normal, Skin temperature is warm. 08:00 Reassessment: Patient appears in no apparent distress at this time. Patient and/or rb3 family updated on plan of care and expected duration. Pain level reassessed. Patient is alert, oriented x 3, equal unlabored respirations, skin warm/dry/pink. pt. is watching TV. 08:58 Reassessment: Patient appears in no apparent distress at this time. No changes from rb3 previously documented assessment. 10:00 Reassessment: Patient appears in no apparent distress at this time. Patient and/or rb3 family updated on plan of care and expected duration. Pain level reassessed. Patient is alert, oriented x 3, equal unlabored respirations, skin warm/dry/pink. 11:00 Reassessment: Patient appears in no apparent distress at this time. No changes from rb3 previously documented assessment. Pt. is watching TV. 11:41 Reassessment: Patient appears in no apparent distress at this time. Gave the pt. some rb3 ice water. 12:33 Reassessment: Patient appears in no apparent distress at this time. Patient and/or rb3 family updated on plan of care and expected duration. Pain level reassessed. Patient is alert, oriented x 3, equal unlabored respirations, skin warm/dry/pink. 13:30 Reassessment: Patient appears in no apparent distress at this time. No changes from rb3 previously documented assessment. Pt. is watching TV. 14:30 Reassessment: Patient appears in no apparent distress at this time. Patient and/or rb3 family updated on plan of care and expected duration. Pain level reassessed. Patient is alert, oriented x 3, equal unlabored respirations, skin warm/dry/pink. 15:30 Reassessment: Patient appears in no apparent distress at this time. Pt. is watching TV, rb3 gave the pt a cup of ice water. 16:03 Reassessment: Unable to give report at this time, the nurse is currently giving report rb3 to a facility. 16:15 Reassessment: Patient appears in no apparent distress at this time. Patient and/or rb3 family updated on plan of care and expected duration. Pain level reassessed. Patient is alert, oriented x 3, equal unlabored respirations, skin warm/dry/pink. No complaints at this time. 16:23 Reassessment: Gave report to RAMSES Razo. Information from the SBAR was given, all rb3 questions asked and answered. Vital Signs: 03:43 BP 106 / 81; Pulse 93; Resp 19; Temp 98.2; Pulse Ox 95% on R/A; Weight 68.04 kg; Height ea 6 ft. 2 in. (187.96 cm); Pain 9/10; 07:00 BP 109 / 86; Pulse 94; Resp 19; Pulse Ox 94% on R/A; rb3 08:00 BP 101 / 86; Pulse 99; Resp 18; Pulse Ox 92% ; rb3 08:58 BP 101 / 84; Pulse 107; Resp 19; Pulse Ox 95% on R/A; rb3 09:58 BP 106 / 83; Pulse 95; Resp 17; Pulse Ox 95% ; rb3 11:00 BP 100 / 83; Pulse 95; Resp 18; Pulse Ox 94% ; rb3 12:00 BP 110 / 92; Pulse 91; Resp 16; Pulse Ox 93% ; rb3 13:00 BP 113 / 87; Pulse 96; Resp 19; Pulse Ox 94% ; rb3 14:00 BP 111 / 85; Pulse 108; Resp 18; Pulse Ox 92% ; rb3 15:00 BP 104 / 81; Pulse 94; Resp 17; Pulse Ox 94% ; rb3 16:00 BP 109 / 83; Pulse 91; Resp 17; Pulse Ox 94% ; rb3 03:43 Body Mass Index 19.26 (68.04 kg, 187.96 cm) ea ED Course: 03:00 Patient arrived in ED. cl3 03:22 Gino Pineda MD is Attending Physician. mh7 03:26 Bud Nascimento RN is Primary Nurse. rv 03:45 Triage completed. ea 03:46 Patient has correct armband on for positive identification. Bed in low position. Call ea light in reach. Side rails up X2. bus driver/monitor on. Pulse ox on. NIBP on. 03:48 Arm band placed on right wrist. Patient placed in an exam room, on a stretcher, on ea engine monitor, on pulse oximetry. 04:03 XRAY Chest (1 view) In Process Unspecified. EDMS 04:10 Inserted saline lock: 20 gauge in right antecubital area, using aseptic technique. rv Blood collected. 04:10 Initial lab(s) drawn, by me, sent to lab. rv 06:23 Attending Physician role handed off by Gino Pineda MD manuel 06:23 Larry Whiteside MD is Attending Physician. mnauel 06:27 CT Chest For PE Angio In Process Unspecified. EDMS 06:40 Roxann Block MD is Hospitalizing Provider. manuel 07:40 First set of blood cultures drawn by me. Inserted saline lock: 22 gauge in left dh3 forearm, using aseptic technique. Blood collected. 07:47 add on labs drawn by me and sent to lab. dh3 16:42 No provider procedures requiring assistance completed. rb3 16:42 Patient admitted, IV remains in place. rb3 Administered Medications: 04:17 Drug: morphine 2 mg Route: IVP; Site: right antecubital; rv 07:05 Follow up: Response: No adverse reaction; Marked relief of symptoms; Pain is decreased; rv RASS: Alert and Calm (0) 04:17 Drug: Zofran (Ondansetron) 4 mg Route: IVP; Site: right antecubital; rv 07:05 Follow up: Response: No adverse reaction rv 06:43 Not Given (Duplicate Order): Aspirin 162 mg PO once manuel 06:43 Not Given (Duplicate Order): Lovenox 70 mg Sub-Q once manuel 07:04 Drug: Pepcid 20 mg Route: IVP; Site: right antecubital; rv 07:05 Follow up: Response: No adverse reaction rv 07:04 Drug: Rocephin 1 grams Route: IV; Rate: per protocol; Site: right antecubital; rv 07:30 Follow up: Response: No adverse reaction; IV Status: Completed infusion rb3 07:04 Drug: Zithromax 500 mg Route: IVPB; Infused Over: 1 hrs; Site: right antecubital; rv 08:10 Follow up: Response: No adverse reaction; IV Status: Completed infusion rb3 07:04 Drug: Eliquis 5 mg Route: PO; rv 07:35 Follow up: Response: No adverse reaction rb3 09:04 Not Given (Javier held medication due to BP 103/79): Lopressor 25 mg PO once rb3 09:04 Not Given (BP 101/86): Lasix 20 mg IVP once rb3 Outcome: 06:43 Decision to Hospitalize by Provider. manuel 16:42 Admitted to Med/surg accompanied by tech, via wheelchair, room 210, with chart, Report rb3 called to RAMSES Razo 16:42 Condition: stable 16:42 Instructed on the need for admit. 16:42 Patient left the ED. rb3 Signatures: Dispatcher [employer] EDCA Larry Whiteside MD MD cha Herrera, Jessenia 3 Nelda Hendrix RN Bud Beck ea, RN RN rv Lewis, Charde 3 Gino Pineda MD MD [facility] Mirna Beard, RAMSES RN rb3 Corrections: (The following items were deleted from the chart) 16:57 16:56 Patient left the ED. rb3 rb3
[2020-04-09] MEDS ORDERED: NA CHLORIDE 0.9% 250 ML ONE (07:00)
[2020-04-09] MEDS ORDERED: ASPIRIN 81 MG CHEWABLE TABLET ONE (07:00)
[2020-04-09] MEDS ORDERED: CEFTRIAXONE 1000 MG/VIAL ONE (07:00)
[2020-04-09] MEDS ORDERED: ENOXAPARIN 80 MG/0.8 ML SQ ONE (07:00)
[2020-04-09] MEDS ORDERED: AZITHROMYCIN 500 MG INJ IVPB ONE (07:00)
[2020-04-09] MEDS ORDERED: METOPROLOL TAR 25 MG TAB ONE (07:00)
[2020-04-09] MEDS ORDERED: FAMOTIDINE 20 MG/2 ML VIAL IV ONE (07:01)
[2020-04-09] MEDS ORDERED: ACETAMINOPHEN 500 MG TAB PO PRN (07:02)
[2020-04-09] MEDS ORDERED: ONDANSETRON 4 MG/2 ML VIAL IV PRN (07:02)
[2020-04-09] MEDS ORDERED: APIXABAN 5 MG TABLET ONE (07:13)
[2020-04-09] MEDS ORDERED: NA CHLORIDE 0.9% 1,000 ML IV SCH (08:00)
[2020-04-09] MEDS ORDERED: FUROSEMIDE 20 MG/ 2ML VIAL ONE (08:03)
[2020-04-09 08:25] LABS: Ferritin 598.5 ng/mL (26-388); Troponin I 0.11 ng/mL (0.0-0.045)
--- NOTE | 2020-04-09 08:42 | RAD REPORT ---
EXAM DESCRIPTION: RAD - Chest Single View - 04/09/2020 4:03 am CLINICAL HISTORY: CHEST PAIN Chest pain. COMPARISON: Chest Single View dated 01/21/2020; Chest For Pe Angio dated 04/09/2020 FINDINGS: Portable technique limits examination quality. Moderate bilateral interstitial opacities likely representing interstitial pneumonia or interstitial pulmonary edema. Small bilateral pleural effusions. The heart is mildly enlarged in size. Right-sided venous catheter its tip in the SVC.
[2020-04-09] MEDS ORDERED: APIXABAN 5 MG TABLET PO SCH (09:00)
[2020-04-09] MEDS ORDERED: ENOXAPARIN 40 MG/0.4 ML SQ SCH (09:00)
[2020-04-09] MEDS ORDERED: CEFTRIAXONE/SWI 1gm 1 GM/10 ML SYR IV SCH (12:00)
--- NOTE | 2020-04-09 13:39 | CON ---
Date of Consultation: 04/09/2020 Reason For Consultation: Chest pain and borderline elevated troponin. History Of Present Illness: This is a middle-aged male, history of coronary artery disease status po st stent placement in the past, hypertension, stomach cancer, on chemo and radiation, presented due t o cough with chest pain and shortness of breath. Chest pain is not related to exertion and completel y subsided by now. Does not have any nausea, vomiting, or diarrhea. No bleeding and patient has bee n taken Eliquis on a chronic basis as well. Past Medical History: As outlined above in HPI. Medications: Refer to reconciliation sheet for detailed list. Social History: He is a smoker, 1 pack per day. Does not drink. Does not use drugs. Family History: No premature coronary artery disease or cancer. Physical Examination: Vital Signs: Temperature is 98.4, pulse 74, breathing at 18, blood pressure 134/74. General: Pleasant, middle-aged male, in no apparent distress. Head and Neck: Pupils are equal, react to light. Intact eye movements. No JVD. No cervical lympha denopathy. Neck: Supple. Thyroid is not enlarged. Lungs: Clear to auscultation bilaterally. No rhonchi, rales, or crackles. No accessory muscle use. Heart: Regular rate and rhythm. No extra sounds. Abdomen: Soft, nontender. Bowel sounds positive. No organomegaly. No tenderness. Extremities: No clubbing, cyanosis. Intact pulses. Skin: No rashes. Neurologic: Alert, awake, oriented x3. No acute focal deficits associated. Investigations: Troponin 0.11, the second set; first set was 0.09, creatinine is 0.94. EKG; T-wave inversion in lateral leads, which is old. Assessment And Plan: 1.Chest pain with known history of coronary artery disease and borderline troponin leak. Admit, do serial sets of cardiac enzymes and please obtain an echocardiogram. Start on aspirin and Plavix. Tr oponin trends up to higher level. Patient might require coronary angiogram and informed that if that is the case, we will consider transfer based on the patient progress. Also, please check COVID-19 s tatus on him. 2.Elevated NT-proBNP with chest pain. Please obtain echocardiogram to evaluate for any wall motion abnormality and the filling pressures and challenge with a dose of Lasix 40 mg IV and reassess the re sponse. These findings could be suggestive of acute congestive heart failure, even though clinically he does not look fluid overloaded, so pneumonia is a possibility as well. Again recommended challen ge with 1 dose of Lasix 40 mg IV and re-evaluate with a chest x-ray. SR/MODL Voice ID: [id number] Report ID: [id number]
--- NOTE | 2020-04-09 16:47 | RAD REPORT ---
EXAM DESCRIPTION: CT Angiography Chest With Intravenous Contrast CLINICAL HISTORY: The patient is 60 years old and is Male; Chest pain;SOB TECHNIQUE: Axial computed tomographic angiography images of the chest with intravenous contrast. S agittal and coronal reformatted images were created and reviewed. This CT exam was performed using one or more of the following dose reduction techniques: automated exposure control, adjustment of t he mA and/or kV according to patient size, and/or use of iterative reconstruction technique. MIP re constructed images were created and reviewed. COMPARISON: No relevant prior studies available. FINDINGS: Pulmonary arteries: No PE identified. Aorta: No acute findings. No thoracic aortic aneurysm. Lungs: Left lower lobe consolidation with left lower lobe peribronchial thickening. Thickened interlobular septa bilaterally. Pleural space: Small bilateral pleural effusions. No pneumothorax. Heart: Moderate cardiomegaly. No significant pericardial effusion. Mediastinum: Enlarged subcarinal lymph nodes. Bones/joints: No acute fracture. No dislocation. Soft tissues: Unremarkable. Lymph nodes: See above. Stomach and bowel: Previous gastric surgery, stomach incompletely evaluated. Tubes, lines and devices: Right-sided chest port with the catheter tip in SVC. IMPRESSION: 1. Interstitial edema with small bilateral pleural effusions. 2. Left lower lobe consolidation with left lower lobe peribronchial thickening. 3. No PE identified. 4. Additional non-emergent findings as above. Electronically signed by: Libby Cobos MD 04/09/2020 6:39 AM WHEELAGE CLERK Due to temporary technical issues with the PACS/Fluency reporting system, reports are being signed by the in house radiologists without review as a courtesy to insure prompt reporting. The interpreting radiologist is fully responsible for the content of the report
[2020-04-09] MEDS: CEFTRIAXONE/SWI 1gm 1 GM/10 ML SYR IV SCH (18:55)
--- NOTE | 2020-04-09 19:09 | P.HP ---
Certification for Inpatient Patient admitted to: Inpatient With expected LOS: >2 Midnights Patient will require the following post-hospital care: None Practitioner: I am a practitioner with admitting privileges, knowledge of patient current condition, hospital course, and medical plan of care. Services: Services provided to patient in accordance with Admission requirements found in Title 42 Section 412.3 of the Code of Federal Regulations Patient History Date of Service: 04/09/20 Reason for admission: Pneumonia; CP /o ACS History of Present Illness: Patient is a 60yo who was admitted to the hospital with chest discomfort. Patient has a history of Coronary artery disease, hypertension, dyslipidemia, and he has had a prior stent placed. Patient had just finished chemotherapy for stomach cancer. He was having pain towards the end of it. Pain was mainly in the sternal region. Patient was short of breath. Patient was having some sternal pressure as well. Patient came to the emergency room for further evaluation. In the emergency room patient's troponins were elevated. Decision was made to admit the patient to the hospital for further evaluation. Allergies No Known Allergies Allergy (Verified 04/09/20 20:41) Home Medications: Apixaban [Eliquis] 5 mg PO BID 01/21/20 - Past Medical/Surgical History -: Hypertension -: Dyslipidemia -: Coronary artery disease -: Stomach cancer -: Coronary artery disease with stent placement - Family History Father Family History: Reviewed- Non-Contributory - Social History Smoking Status: Never smoker Alcohol use: No CD- Drugs: No Review of Systems 10-point ROS is otherwise unremarkable Physical Examination - Vital Signs Temperature: 97.9 F Blood Pressure: 114/83 Pulse: 101 Respirations: 19 Pulse Ox (%): 90 - Physical Exam General: Alert, In no apparent distress, Oriented x3 HEENT: Atraumatic, PERRLA, Mucous membr. moist/pink, EOMI, Sclerae nonicteric Neck: Supple, 2+ carotid pulse no bruit, No LAD, Without JVD or thyroid abnormality Respiratory: Clear to auscultation bilaterally, Normal air movement Cardiovascular: Regular rate/rhythm, Normal S1 S2, No murmurs Gastrointestinal: Normal bowel sounds, Soft and benign, Non-distended, No tenderness Musculoskeletal: No clubbing, No swelling, No tenderness Neurological: Normal speech, Normal strength at 5/5 x4 extr, Normal tone, Sensation intact, Cranial nerves 3-12 intact, Normal affect Lymphatics: No axilla or inguinal lymphadenopathy - Studies Laboratory Data (last 24 hrs) 04/09/20 04:10: PT 14.0 H, INR 1.19 04/09/20 04:10: WBC 5.1, Hgb 11.3 L, Hct 34.9 L, Plt Count 264 04/09/20 04:10: Sodium 149 H, Potassium 3.9, BUN 16, Creatinine 0.94, Glucose 100, Magnesium 2.7 H, Total Bilirubin 0.2, AST 25, ALT 22, Alkaline Phosphatase 100, Lipase 41 L Assessment & Plan - Problems (Diagnosis) (1) Chest pain, rule out acute myocardial infarction Current Visit: Yes Status: Acute (2) Presence of stent in coronary artery in patient with coronary artery disease Current Visit: Yes Status: Acute (3) Hypertension Current Visit: Yes Status: Acute (4) Dyslipidemia Current Visit: Yes Status: Acute (5) History of stomach cancer Current Visit: Yes Status: Acute - Plan 1. Serial troponins and EKG 2. Appreciate Cardiology consultation 3. Echocardiogram and further intervention per Cardiology 4. Anti-platelet therapy, anti coagulation, beta-lou, statin, and O2 as needed 5. IV morphine for pain 6. Nitro p.r.n. 7. GI and DVT prophylaxis Discharge Plan: Home Plan to discharge in: Greater than 2 days - Advance Directives Does patient have a Living Will: No Does patient have a Durable POA for Healthcare: No - Code Status/Comfort Care Code Status Assessed: Yes Code Status: Full Code Critical Care: No Time Spent Managing PTS Care (In Minutes): 40
[2020-04-09] MEDS: APIXABAN 5 MG TABLET PO SCH (20:39)
[2020-04-09] MEDS: MORPHINE 2 MG/ML SYR IV PRN (21:39)
[2020-04-09] MEDS: BENZONATATE 100 MG CAP PO PRN (21:39)
[2020-04-10] MEDS: MORPHINE 2 MG/ML SYR IV PRN (04:23)
[2020-04-10 04:50] VITALS: BMI 19.2
[2020-04-10 06:03] LABS: Absolute Lymphocytes (CBC) 0.4 K/uL (0.7-4.9); Basophils % 0.2 % (0-1.3); Hematocrit 34.9 % (39.6-49.0); Lymphocytes % 9.3 % (15.3-44.8); MPV 8.1 fL (7.6-11.3); RBC Red Blood Cell Count 4.03 M/uL (4.33-5.43)
[2020-04-10 06:21] LABS: ALT/SGPT 17 U/L (12-78); AST/SGOT 22 U/L (15-37); Albumin 2.1 g/dL (3.4-5.0); Alkaline Phosphatase 94 U/L (45-117); BUN Blood Urea Nitrogen 11 mg/dL (7-18); Bicarbonate 28 mmol/L (21-32); Bilirubin Total 0.2 mg/dL (0.2-1.0); C-Reactive Protein 53.1 mg/L (<3.00); Ferritin 646.7 ng/mL (26-388); Glucose Level 140 mg/dL (74-106); HDL Cholesterol 40 mg/dL (40-60); LDL Cholesterol, Calculated 45 (<130); Magnesium 2.2 mg/dL (1.8-2.4); NT PRO-BNP 10549 pg/mL (<125); Phosphorus 2.6 mg/dL (2.5-4.9); Potassium 3.4 mmol/L (3.5-5.1); Protein, Total 5.9 g/dL (6.4-8.2); Sodium Level 147 mmol/L (136-145)
[2020-04-10] MEDS: CEFTRIAXONE/SWI 1gm 1 GM/10 ML SYR IV SCH ×2 (07:17→18:02)
[2020-04-10] MEDS ORDERED: ALBUMIN HUMAN 25% 100 ML IV ONE (07:55)
[2020-04-10] MEDS ORDERED: FUROSEMIDE 20 MG/ 2ML VIAL IV ONE (07:55)
--- NOTE | 2020-04-10 07:59 | P.HP ---
Certification for Inpatient Patient admitted to: Inpatient With expected LOS: >2 Midnights Patient will require the following post-hospital care: None Practitioner: I am a practitioner with admitting privileges, knowledge of patient current condition, hospital course, and medical plan of care. Services: Services provided to patient in accordance with Admission requirements found in Title 42 Section 412.3 of the Code of Federal Regulations Patient History Date of Service: 04/09/20 Reason for admission: Pneumonia; CP /o ACS History of Present Illness: Patient is a 60yo who was admitted to the hospital with chest discomfort. Patient has a history of Coronary artery disease, hypertension, dyslipidemia, and he has had a prior stent placed. Patient had just finished chemotherapy for stomach cancer. He was having pain towards the end of it. Pain was mainly in the sternal region. Patient was short of breath. Patient was having some sternal pressure as well. Patient came to the emergency room for further evaluation. In the emergency room patient's troponins were elevated. Patient also had a CT of the chest which revealed that patient had a left lower lobe lung consolidation. Patient had a normal procalcitonin level and did not have leukocytosis. This could be related to chemotherapy. Patient will be started on IV antibiotic therapy. Patient's oxygen saturations were still on the low side as well. Continue on 2 L oxygen. Decision was made to admit the patient to the hospital for further evaluation. Allergies No Known Allergies Allergy (Verified 04/09/20 20:41) Home Medications: Apixaban [Eliquis] 5 mg PO BID 01/21/20 - Past Medical/Surgical History Has patient received pneumonia vaccine in the past: No Diabetic: No -: Hypertension -: Dyslipidemia -: Coronary artery disease -: Stomach cancer -: Coronary artery disease with stent placement -: gastrectomy -: R chest port - Family History Father Family History: Reviewed- Non-Contributory - Social History Smoking Status: Never smoker Alcohol use: No CD- Drugs: No Review of Systems 10-point ROS is otherwise unremarkable Physical Examination - Vital Signs Temperature: 97.9 F Blood Pressure: 114/83 Pulse: 101 Respirations: 19 Pulse Ox (%): 90 - Physical Exam General: Alert, In no apparent distress, Oriented x3 HEENT: Atraumatic, PERRLA, Mucous membr. moist/pink, EOMI, Sclerae nonicteric Neck: Supple, 2+ carotid pulse no bruit, No LAD, Without JVD or thyroid abnormality Respiratory: Diminished, Rhonchi/gurgles Cardiovascular: Regular rate/rhythm, Normal S1 S2, No murmurs Gastrointestinal: Normal bowel sounds, Soft and benign, Non-distended, No tenderness Musculoskeletal: No clubbing, No swelling, No tenderness Integumentary: No rashes Neurological: Normal gait, Normal speech, Normal strength at 5/5 x4 extr, Normal tone, Sensation intact, Cranial nerves 3-12 intact, Normal affect Lymphatics: No axilla or inguinal lymphadenopathy Assessment & Plan - Problems (Diagnosis) (1) Chest pain, rule out acute myocardial infarction Current Visit: Yes Status: Acute (2) Presence of stent in coronary artery in patient with coronary artery disease Current Visit: Yes Status: Acute (3) Hypertension Current Visit: Yes Status: Acute (4) Dyslipidemia Current Visit: Yes Status: Acute (5) History of stomach cancer Current Visit: Yes Status: Acute (6) Consolidation of left lower lobe of lung Current Visit: Yes Status: Acute - Plan 1. Serial troponins and EKG 2. Appreciate Cardiology consultation 3. Echocardiogram and further intervention per Cardiology 4. Anti-platelet therapy, anti coagulation, beta-lou, statin, and O2 as needed 5. IV morphine for pain 6. Nitro p.r.n. 7. Continue with IV antibiotic therapy 8. Continue with neb treatments 9. GI and DVT prophylaxis Discharge Plan: Home Plan to discharge in: Greater than 2 days - Advance Directives Does patient have a Living Will: No Does patient have a Durable POA for Healthcare: No - Code Status/Comfort Care Code Status: Full Code Critical Care: No Time Spent Managing PTS Care (In Minutes): 40
--- NOTE | 2020-04-10 08:03 | P.PN ---
Subjective Date of Service: 04/10/20 Patient continues to do well. No new complaints. Still having occasional pain. Review of Systems 10-point ROS is otherwise unremarkable Physical Examination - Vital Signs Temperature: 97.9 F Blood Pressure: 114/83 Pulse: 101 Respirations: 19 Pulse Ox (%): 90 - Physical Exam General: Alert, In no apparent distress, Oriented x3 Respiratory: Diminished, Rhonchi/gurgles Cardiovascular: Regular rate/rhythm, Normal S1 S2, Systolic murmur Gastrointestinal: Normal bowel sounds, Soft and benign, Non-distended, No tenderness Musculoskeletal: No clubbing, No swelling, No tenderness Neurological: Sensation intact, Cranial nerves 3-12 intact - Studies Medications List Reviewed: Yes Assessment & Plan - Problems (Diagnosis) (1) Chest pain, rule out acute myocardial infarction Current Visit: Yes Status: Acute (2) Presence of stent in coronary artery in patient with coronary artery disease Current Visit: Yes Status: Acute (3) Hypertension Current Visit: Yes Status: Acute (4) Dyslipidemia Current Visit: Yes Status: Acute (5) History of stomach cancer Current Visit: Yes Status: Acute (6) Consolidation of left lower lobe of lung Current Visit: Yes Status: Acute - Plan 1. Gentle diuresing. 2. Echocardiogram and further intervention per Cardiology 3. O2 per protocol 4. Continue Anti-platelet therapy, anti coagulation, beta-lou, statin, and O2 as needed 5. Continue IV morphine for pain 6. Nitro p.r.n. 7. Will stop IV antibiotic therapy per Pulmonary 8. Continue with neb treatments as needed 9. GI and DVT prophylaxis Discharge Plan: Home Plan to discharge in: Greater than 2 days - Advance Directives Does patient have a Living Will: No Does patient have a Durable POA for Healthcare: No - Code Status/Comfort Care Code Status: Full Code Critical Care: No Time Spent Managing PTS Care (In Minutes): 45
[2020-04-10] MEDS ORDERED: POTASSIUM CL SA 10 MEQ TAB PO ONE ×2 (09:00→16:28)
[2020-04-10] MEDS: APIXABAN 5 MG TABLET PO SCH ×2 (10:04→22:36)
[2020-04-10] MEDS: AZITHROMYCIN IV 500 MG in NA CHLORIDE 0.9% 250 ML IVPB SCH (10:27)
[2020-04-10] MEDS ORDERED: METOPROLOL TAR 25 MG TAB PO ONE (11:23)
--- NOTE | 2020-04-10 16:11 | EKG ---
Test Date: 2020-04-09 Test Time: 03:50:22 Drum Builder: JJ MEASUREMENT RESULTS: Intervals: Rate: 94 VT: 130 QRSD: 88 QT: 412 QTc: 515 Stanton: P: 68 VT: 130 QRS: 74 T: 178 INTERPRETIVE STATEMENTS: Sinus rhythm with fusion complexes T wave abnormality, consider inferolateral ischemia Prolonged QT Abnormal ECG Compared to ECG 12/02/2010 12:07:42 Fusion complex(es) now present T-wave abnormality now present Left ventricular hypertrophy no longer present ST (T wave) deviation no longer present Possible ischemia still present Electronically Signed On 04-10-20 16:09:34 BLACK TOP MACHINE OPERATOR by Ronnie Luke
[2020-04-10] MEDS: METOPROLOL TAR 25 MG TAB PO SCH (16:59)
[2020-04-11] MEDS: CEFTRIAXONE/SWI 1gm 1 GM/10 ML SYR IV SCH (06:00)
[2020-04-11] MEDS: METOPROLOL TAR 25 MG TAB PO SCH ×2 (06:00→17:32)
[2020-04-11 06:39] LABS: BUN Blood Urea Nitrogen 9 mg/dL (7-18); Bicarbonate 28 mmol/L (21-32); Glucose Level 107 mg/dL (74-106); Potassium 3.5 mmol/L (3.5-5.1); Sodium Level 146 mmol/L (136-145)
[2020-04-11] MEDS ORDERED: POTASSIUM CL SA 10 MEQ TAB PO ONE (07:50)
[2020-04-11] MEDS: APIXABAN 5 MG TABLET PO SCH ×2 (08:23→20:29)
[2020-04-11] MEDS: BENZONATATE 100 MG CAP PO PRN (08:23)
[2020-04-11] MEDS: AZITHROMYCIN IV 500 MG in NA CHLORIDE 0.9% 250 ML IVPB SCH (09:38)
[2020-04-12 06:19] LABS: BUN Blood Urea Nitrogen 9 mg/dL (7-18); Bicarbonate 25 mmol/L (21-32); Glucose Level 92 mg/dL (74-106); Potassium 3.3 mmol/L (3.5-5.1); Sodium Level 146 mmol/L (136-145)
[2020-04-12] MEDS: METOPROLOL TAR 25 MG TAB PO SCH ×2 (06:55→18:03)
[2020-04-12] MEDS ORDERED: POTASSIUM CL SA 10 MEQ TAB PO ONE (07:00)
[2020-04-12] MEDS: APIXABAN 5 MG TABLET PO SCH ×2 (08:30→19:57)
[2020-04-12] MEDS: BENZONATATE 100 MG CAP PO PRN (08:33)
--- NOTE | 2020-04-12 09:06 | P.PN ---
Subjective Date of Service: 04/11/20 Patient is still getting short of breath on ambulation. Awaiting echocardiogram to evaluate cardiac function. Spoke with Pulmonary and they believe his right lower lobe x-ray changes are related to a pulmonary edema and recommended discontinuing antibiotics. Continue Lasix and awaiting echocardiogram on Monday to evaluate for wall motion abnormality and for possible cardiomyopathy Review of Systems 10-point ROS is otherwise unremarkable Physical Examination - Vital Signs Temperature: 98.9 F Blood Pressure: 111/78 Pulse: 94 Respirations: 18 Pulse Ox (%): 94 - Physical Exam General: Alert, In no apparent distress, Oriented x3 Neck: JVD not distended Respiratory: Diminished, Crackles/rales Cardiovascular: Regular rate/rhythm, Normal S1 S2, No murmurs Gastrointestinal: Normal bowel sounds, Soft and benign, Non-distended, No tenderness Musculoskeletal: No clubbing, No swelling, No tenderness, No warmth Integumentary: No rashes Neurological: Normal tone, Sensation intact, Cranial nerves 3-12 intact Lymphatics: No axilla or inguinal lymphadenopathy - Studies Medications List Reviewed: Yes Assessment & Plan - Problems (Diagnosis) (1) Chest pain, rule out acute myocardial infarction Current Visit: Yes Status: Acute (2) Presence of stent in coronary artery in patient with coronary artery disease Current Visit: Yes Status: Acute (3) Hypertension Current Visit: Yes Status: Acute (4) Dyslipidemia Current Visit: Yes Status: Acute (5) History of stomach cancer Current Visit: Yes Status: Acute (6) Consolidation of left lower lobe of lung Current Visit: Yes Status: Acute (7) Elevated brain natriuretic peptide (BNP) level Current Visit: Yes Status: Acute (8) Elevated troponin Current Visit: Yes Status: Acute - Plan 1. Troponins are mildly elevated. Further intervention per Cardiology; echocardiogram pending 2. Continue with gentle diuresing 3. O2 per protocol 4. Continue Anti-platelet therapy, anti coagulation, beta-lou, statin, and O2 as needed 5. Continue with IV antibiotic therapy 6. GI and DVT prophylaxis Discharge Plan: Home Plan to discharge in: Greater than 2 days - Advance Directives Does patient have a Living Will: No Does patient have a Durable POA for Healthcare: No - Code Status/Comfort Care Code Status: Full Code Critical Care: No Time Spent Managing PTS Care (In Minutes): 35
[2020-04-12 13:01] LABS: Absolute Lymphocytes (CBC) 0.4 K/uL (0.7-4.9); Basophils % 0.1 % (0-1.3); Hematocrit 35.7 % (39.6-49.0); Lymphocytes % 7.8 % (15.3-44.8); MPV 8.3 fL (7.6-11.3); RBC Red Blood Cell Count 4.13 M/uL (4.33-5.43)
[2020-04-12 13:26] LABS: Potassium 3.6 mmol/L (3.5-5.1); Troponin I 0.05 ng/mL (0.0-0.045)
[2020-04-12] MEDS ORDERED: POTASSIUM 25 MEQ EFFERV TAB PO ONE (15:57)
[2020-04-12] MEDS: FUROSEMIDE 20 MG/ 2ML VIAL IV SCH (18:03)
[2020-04-12] MEDS: ENSURE ENLIVE 237 ML CAN PO SCH (19:57)
[2020-04-13 01:02] VITALS: O2SAT 97
[2020-04-13] MEDS: FUROSEMIDE 20 MG/ 2ML VIAL IV SCH ×2 (01:11→09:12)
[2020-04-13] MEDS: METOPROLOL TAR 25 MG TAB PO SCH (05:39)
[2020-04-13 06:21] LABS: BUN Blood Urea Nitrogen 7 mg/dL (7-18); Bicarbonate 26 mmol/L (21-32); Glucose Level 96 mg/dL (74-106); Potassium 3.1 mmol/L (3.5-5.1); Sodium Level 147 mmol/L (136-145)
--- NOTE | 2020-04-13 07:20 | P.PN ---
Subjective Date of Service: 04/12/20 PATIENT IS DOING BETTER WITH NO NEW COMPLAINTS. CLINICAL SYMPTOMS ARE IMPROVED. STILL GETS SHORT OF BREATH WHEN WALKING TO THE BATHROOM. PATIENT OTHERWISE HAS NO NEW COMPLAINTS. WAITING FOR ECHOCARDIOGRAM AND DECISION BY CARDIOLOGY WHETHER OR NOT TO PROCEED WITH CARDIAC CATHETERIZATION. PATIENT HAS A HISTORY OF STOMACH CANCER AND IS ON CHEMOTHERAPY. PATIENT IS GETTING TREATED AT THE CANCER CENTER. IF HIS WORKUP IS UNREMARKABLE THEN HE SHOULD BE ABLE TO GO HOME LATER TODAY. PATIENT IS WEANED OFF OF NASAL CANNULA AND IS ON HOME OXYGEN. Review of Systems 10-point ROS is otherwise unremarkable Physical Examination - Vital Signs Temperature: 99.8 F Blood Pressure: 110/70 Pulse: 87 Respirations: 20 Pulse Ox (%): 100 - Physical Exam General: Alert, In no apparent distress, Oriented x3 Respiratory: Clear to auscultation bilaterally, Normal air movement Cardiovascular: Regular rate/rhythm, Normal S1 S2, No murmurs Gastrointestinal: Normal bowel sounds, Soft and benign, Non-distended, No tenderness Musculoskeletal: No clubbing, No swelling, No tenderness Lymphatics: No axilla or inguinal lymphadenopathy - Studies Medications List Reviewed: Yes Assessment & Plan - Problems (Diagnosis) (1) Chest pain, rule out acute myocardial infarction Current Visit: Yes Status: Acute (2) Presence of stent in coronary artery in patient with coronary artery disease Current Visit: Yes Status: Acute (3) Hypertension Current Visit: Yes Status: Acute (4) Dyslipidemia Current Visit: Yes Status: Acute (5) History of stomach cancer Current Visit: Yes Status: Acute (6) Consolidation of left lower lobe of lung Current Visit: Yes Status: Acute (7) Elevated brain natriuretic peptide (BNP) level Current Visit: Yes Status: Acute (8) Elevated troponin Current Visit: Yes Status: Acute (9) Cardiomyopathy Current Visit: Yes Status: Acute - Plan 1. Troponins are mildly elevated. Further intervention per Cardiology; echocardiogram pending for Monday 2. Continue with gentle diuresing 3. O2 per protocol 4. Continue Anti-platelet therapy, anti coagulation, beta-lou, statin, and O2 as needed 5. Hold antibiotic therapy 6. Check BNP 7. Check O2 on RA 8. GI and DVT prophylaxis - Advance Directives Does patient have a Living Will: No Does patient have a Durable POA for Healthcare: No - Code Status/Comfort Care Code Status: Full Code Critical Care: No Time Spent Managing PTS Care (In Minutes): 25
[2020-04-13] MEDS ORDERED: POTASSIUM CL SA 10 MEQ TAB PO ONE (08:00)
[2020-04-13] MEDS: APIXABAN 5 MG TABLET PO SCH (09:12)
[2020-04-13] MEDS: ENSURE ENLIVE 237 ML CAN PO SCH (09:13)
--- NOTE | 2020-04-13 09:32 | P.DS ---
Admission Date: 04/09/20 Discharge Date: 04/13/20 Primary Care Provider: none; Oncology-Dr. Bourne Disposition: ROUTINE DISCHARGE Discharge Condition: GOOD Reason for Admission: Pneumonia; CP /o ACS Consultations: Cardiology-Dr. Luke Procedures: CT chest: COMPARISON: No relevant prior studies available. FINDINGS: Pulmonary arteries: No PE identified. Aorta: No acute findings. No thoracic aortic aneurysm. Lungs: Left lower lobe consolidation with left lower lobe peribronchial thickening. Thickened interlobular septa bilaterally. Pleural space: Small bilateral pleural effusions. No pneumothorax. Heart: Moderate cardiomegaly. No significant pericardial effusion. Mediastinum: Enlarged subcarinal lymph nodes. Bones/joints: No acute fracture. No dislocation. Soft tissues: Unremarkable. Lymph nodes: See above. Stomach and bowel: Previous gastric surgery, stomach incompletely evaluated. Tubes, lines and devices: Right-sided chest port with the catheter tip in SVC. IMPRESSION: 1. Interstitial edema with small bilateral pleural effusions. 2. Left lower lobe consolidation with left lower lobe peribronchial thickening. 3. No PE identified. 4. Additional non-emergent findings as above. CXR: FINDINGS: Emphysematous changes are present throughout the lungs. Posterior left lower lobe infiltrate has improved moderately but remains present. The heart is upper limit normal in size. Right-sided venous catheter tip in the SVC. IMPRESSION: Moderate improvement in posterior left lower lobe lung infiltrate since comparative study, although infiltrate does persist in this region. 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 Patient has a history of Coronary artery disease, hypertension, dyslipidemia, and he has had a prior stent placed. Patient had just finished chemotherapy for stomach cancer. He was having pain towards the end of it. Pain was mainly in the sternal region. Patient was short of breath. Patient was having some sternal pressure as well. Patient came to the emergency room for further evaluation. In the emergency room patient's troponins were elevated. Patient also had a CT of the chest which revealed that patient had a left lower lobe lung consolidation. Patient had a normal procalcitonin level and did not have leukocytosis. This could be related to chemotherapy. Patient will be started on IV antibiotic therapy. Patient's oxygen saturations were still on the low side as well. Continue on 2 L oxygen. Decision was made to admit the patient to the hospital for further evaluation. Hospital Course: Patient presented with chest pain. Patient with underlying history of CAD, and stomach cancer. Patient found to have left lower lobe pneumonia. Patient was treated with antibiotic therapy. Patient has improved. non need for home oxygen. Patient is COVID negative. At discharge patient will continue with Levaquin 500 mg daily for 7 days. Recommend to recheck chest x-ray in 2-4 weeks to monitor resolution. Patient would benefit with cardiology evaluation as an outpatient due to his history. Patient with history of DVT on chronic anti coagulation therapy. Patient with history of stomach cancer with recent chemotherapy as well. Case discussed with his oncologist. Recommend to continue current medication Eliquis. Recommend follow up with oncology as directed. Vital Signs/Physical Exam: Temp Pulse Resp BP Pulse Ox 97.9 F 73 18 97/68 95 04/13/20 08:00 04/13/20 09:12 04/13/20 08:00 04/13/20 09:12 04/13/20 08:00 General: Alert, In no apparent distress, Oriented x3, Cooperative HEENT: Atraumatic Neck: Supple Respiratory: Clear to auscultation bilaterally, Normal air movement Cardiovascular: Normal pulses, Regular rate/rhythm Gastrointestinal: Normal bowel sounds, No tenderness, No masses, No rebound, No guarding Musculoskeletal: No tenderness, No warmth Neurological: Normal speech, Normal strength at 5/5 x4 extr, Normal tone, Normal affect Laboratory Data at Discharge: WBC 5.1 K/uL (4.3-10.9) 04/12/20 12:40 Hgb 11.5 g/dL (13.6-17.9) L 04/12/20 12:40 Hct 35.7 % (39.6-49.0) L 04/12/20 12:40 Plt Count 201 K/uL (152-406) 04/12/20 12:40 PT 14.0 SECONDS (9.5-12.5) H 04/09/20 04:10 INR 1.19 04/09/20 04:10 Sodium 147 mmol/L (136-145) H 04/13/20 05:45 Potassium 3.1 mmol/L (3.5-5.1) L 04/13/20 05:45 BUN 7 mg/dL (7-18) 04/13/20 05:45 Creatinine 0.87 mg/dL (0.55-1.3) 04/13/20 05:45 Glucose 96 mg/dL (74-106) 04/13/20 05:45 Phosphorus 2.6 mg/dL (2.5-4.9) 04/10/20 05:43 Magnesium 2.2 mg/dL (1.8-2.4) D 04/10/20 05:43 Total Bilirubin 0.2 mg/dL (0.2-1.0) 04/10/20 05:43 AST 22 U/L (15-37) 04/10/20 05:43 ALT 17 U/L (12-78) 04/10/20 05:43 Alkaline Phosphatase 94 U/L (45-117) 04/10/20 05:43 Troponin I 0.05 ng/mL (0.0-0.045) H 04/12/20 12:40 Triglycerides 141 mg/dL (<150) 04/10/20 05:43 Cholesterol 113 mg/dL (<200) 04/10/20 05:43 HDL Cholesterol 40 mg/dL (40-60) 04/10/20 05:43 Cholesterol/HDL Ratio 2.83 04/10/20 05:43 Lipase 41 U/L (73-393) L 04/09/20 04:10 Home Medications: Apixaban [Eliquis] 5 mg PO BID 01/21/20 Levofloxacin [Levaquin] 500 mg PO DAILY #7 tablet 04/13/20 New Medications: Levofloxacin [Levaquin] 500 mg PO DAILY #7 tablet Patient Discharge Instructions: Patient presented with chest pain. Patient with underlying history of CAD, and stomach cancer. Patient found to have left lowe r lobe pneumonia. Patient was treated with antibiotic therapy. Patient has improved. non need for home oxygen. Patient is COVID negative. At discharge patient will continue with Levaquin 500 mg daily for 7 days. Recommend to recheck chest x-ray in 2-4 weeks to monitor resolution. Patient would benefit with cardiology evaluation as an outpatient due to his history. Recommend to establish care with a local PCP. Patient with history of DVT on chronic anti coagulation therapy. Patient with history of stomach cancer with recent chemotherapy as well. Case discussed with his oncologist. Recommend to continue current medication Eliquis. Recommend follow up with oncology as directed. Diet: AHA Activity: Fall precautions Followup: NONE,NONE [Primary Care Provider] - Time spent managing pt's care (in minutes): 55
--- NOTE | 2020-04-13 10:24 | RAD REPORT ---
EXAM DESCRIPTION: RAD - Chest Pa And Lat (2 Views) - 04/13/2020 10:12 am CLINICAL HISTORY: follow up LLL pneumonia Chest pain. COMPARISON: Chest Single View dated 04/09/2020; Chest Single View dated 01/21/2020; Chest For Pe Ang io dated 04/09/2020 FINDINGS: Emphysematous changes are present throughout the lungs. Posterior left lower lobe infiltra te has improved moderately but remains present. The heart is upper limit normal in size. Right-sided venous catheter tip in the SVC. IMPRESSION: Moderate improvement in posterior left lower lobe lung infiltrate since comparative stud y, although infiltrate does persist in this region.
[2020-04-13 12:53] VITALS: BP 99/76; TEMP 98
--- NOTE | 2020-04-13 15:10 | ECHO ---
HEIGHT: 6 ft 2 in WEIGHT: 150 lb 0 oz DATE OF STUDY: 04/13/[address]: Roxann Block MD 2-DIMENSIONAL: YES M.MODE: YES DOPPLER: YES COLOR FLOW: YES TDS: PORTABLE: DEFINITY: BUBBLE STUDY: DIAGNOSIS: CONGESTIVE HEART FAILURE CARDIAC HISTORY: CATHERIZATION: SURGERY: PROSTHETIC VALVE: PACEMAKER: MEASUREMENTS (cm) DIASTOLIC (NORMALS) SYSTOLIC (NORMALS) IVSd 1.0 (0.6-1.2) LA Diam 4.2 (1.9-4.0) LVEF 14% LVIDd 6.7 (3.5-5.7) LVIDs 6.3 (2.0-3.5) %FS 6% LVPWd 0.9 (0.6-1.2) Ao Diam 2.8 (2.0-3.7) 2 DIMENSIONAL ASSESSMENT: RIGHT ATRIUM: NORMAL LEFT ATRIUM: NORMAL RIGHT VENTRICLE: NORMAL LEFT VENTRICLE: SEVERELY DEPRESSED EJECTION FRACTION TRICUSPID VALVE: NORMAL MITRAL VALVE: MILD MITRAL REGURGITATION PULMONIC VALVE: MILD PULMONIC INSUFFIENCY AORTIC VALVE: MILD AORTIC INSUFFIENCY PERICARDIAL EFFUSION: NONE AORTIC ROOT: NORMAL LEFT VENTRICULAR WALL MOTION: SEVERE GLOBAL HYPOKINESIS DOPPLER/COLOR FLOW: SEE BELOW COMMENTS: SEVERELY DEPRESSED LEFT VENTRICULAR EJECTION FRACTION 15-20% WITH SEVERE GLOBAL HYPOKINESIS. MILD MITRAL REGURGITATION, MILD AORTIC INSUFFIENCY, MILD PULMONIC INSUFFIENCY. MODERATELY DILATED LEFT VENTRICLE. TECHNOLOGIST: DRU BILL
[2020-04-14 12:48] LABS: C.diff Antigen/Toxin Ag neg : Tox neg (NEG : NEG)
== END 2020-04-13 14:53 | disposition home or self-care (01) | DRG 194 ==
LOC: ER 03:00 → ERHOLD 07:02 → 2ND 16:23
PROVIDERS: ADMIT Hospitalist; ATTEND Family Medicine
DX: J18.1 Lobar pneumonia, unspecified organism (principal); C16.9 Malignant neoplasm of stomach, unspecified; I43 Cardiomyopathy in diseases classified elsewhere; I24.8 Other forms of acute ischemic heart disease; E87.0 Hyperosmolality and hypernatremia; I11.9 Hypertensive heart disease without heart failure; F17.210 Nicotine dependence, cigarettes, uncomplicated; I25.10 Atherosclerotic heart disease of native coronary artery without angina pectoris; E78.5 Hyperlipidemia, unspecified; T45.1X5A Adverse effect of antineoplastic and immunosuppressive drugs, initial encounter; R79.89 Other specified abnormal findings of blood chemistry; R77.8 Other specified abnormalities of plasma proteins; Z95.5 Presence of coronary angioplasty implant and graft; Z79.01 Long term (current) use of anticoagulants; Z90.49 Acquired absence of other specified parts of digestive tract; Z86.718 Personal history of other venous thrombosis and embolism; Z79.899 Other long term (current) drug therapy; Z20.822 Contact with and (suspected) exposure to COVID-19
CPT/HCPCS: 36415; 71045; 71046; 71275; 77336; 77386; 80048; 80053; 80061; 80076; 82728; 83605; 83615; 83690; 83735; 83880; 84100; 84132; 84145; 84484; 85025; 85379; 85610; 86140; 87040; 87324; 87449; 93005; 93306; 94760; 96365; 96367; 96368; 96375; 96413; 96415; 96416; 96417; 99285; J0456; J0640; J0696; J1100; J1453; J1642; J1940; J2270; J2405; J2469; J7050; J7060; J9190; J9263; P9047; Q0138; Q9967; U0003

== ENCOUNTER 2021-12-29 01:34 | Emergency (ER) | payer OTHER ==
--- OUTSIDE RECORDS SUMMARY | 2021-12-29 01:37 | XMS REPORT | Continuity of Care Document ---
:1960 Author Organization [facility] t Address [address] [place] [address] Care Team Providers Name Role Phone Luis Micaela Attending Clinician Unavailable Problems This patient has no known problems. Allergies, Adverse Reactions, Alerts This patient has no known allergies or adverse reactions. Medications This patient has no known medications. Procedures This patient has no known procedures. Encounters Start End Encounter Admission Attending Care Care Encounter Source Date/Time Date/Time Type Type Clinicians Facility Department ID 2021-05-05 Outpatient EUSEBIA Smith [facility] [id number] Common 14:26:41 Micaela [id number] [facility] 2021-05-05 Outpatient EUSEBIA Smith [facility] [id number] Common 12:30:10 Micaela [id number] [facility] 2021-05-05 Outpatient EUSEBIA Smith [facility] [id number] Common 11:55:03 Micaela [id number] [facility] 2020-05-21 2020-05-21 Outpatient [facility] [id number] Common 00:00:00 00:00:00 [facility] 2020-02-19 2020-02-19 Outpatient [facility]LMLC [facility] [id number] Common 00:00:00 00:00:00 [facility] 2020-01-22 2020-01-22 Outpatient [facility] [id number] Common 00:00:00 00:00:00 [facility] Results This patient has no known results.
[2021-12-29 03:26] LABS: Arterial Blood Carboxyhemoglob 0.4 % (0-1.5); Blood Gas Oxyhemoglobin 14.7 % (94-97)
[2021-12-29] MEDS ORDERED: ALBUMIN HUMAN 25% 100 ML IV ONE (03:33)
[2021-12-29 03:49] LABS: Absolute Lymphocytes (CBC) 0.4 K/uL (0.7-4.9); Hematocrit 41.2 % (39.6-49.0); Lymphocytes % 9.7 % (15.3-44.8); MCV 91.4 fL (80-100); MPV 9.4 fL (7.6-11.3); RBC Red Blood Cell Count 4.51 M/uL (4.33-5.43)
[2021-12-29 03:51] LABS: Protime INR 2.71
[2021-12-29] MEDS ORDERED: NOREPINEPHRINE BITARTRATE/D5W 4 MG/250 ML BAG IV ONE ×2 (04:16→09:31)
[2021-12-29 04:28] LABS: Albumin 2.5 g/dL (3.4-5.0); Bilirubin Total 4.6 mg/dL (0.2-1.0); Magnesium 2.1 mg/dL (1.8-2.4); Potassium 3.4 mmol/L (3.5-5.1); Protein, Total 5.9 g/dL (6.4-8.2)
[2021-12-29 04:31] LABS: Troponin High Sensitivity 86.7 pg/mL (<58.9)
[2021-12-29 04:44] LABS: Blood Morphology Comment NOTED (NOT SEEN); Burr Cells 3+; Platelet Estimate DECR; White Blood Cell Scan OK (OK)
[2021-12-29 04:56] LABS: Urine Blood 3+ (Negative); Urine Glucose Negative (Negative); Urine Protein 2+ (Negative); Urine Specific Gravity 1.025 (1.005-1.030); Urine pH 5.5 (5.0-7.0)
[2021-12-29 05:44] LABS: Urine Bacteria >50 /HPF (<20); Urine Mucus Slight /HPF (None Seen); Urine RBC >50 /HPF (None Seen); Urine WBC Clump Moderate /HPF (None Seen); Urine Yeast with Hyphae Few /HPF (None Seen)
--- NOTE | 2021-12-29 05:58 | ER ---
Nurse's Notes [facility] Name: Jayant Alamo Age: 61 yrs Sex: Male : 1960 Arrival Date: 12/29/2021 Time: 01:41 Bed 17 Private MD: Diagnosis: Severe sepsis with septic shock;Anasarca;Thrombocytopenia, unspecified;Acute respiratory failure;Hypo-osmolality and hyponatremia;Heart failure, unspecified;Elevated Troponin;Lactic acidosis;Acute Kidney Injury;Hyper bilirubinemia;Hepatic failure, unspecified without coma Presentation: 12/29 02:13 Chief complaint: EMS states: Pt called EMS reporting Abdominal and testicular pain with jb4 swelling. Chief complaint: Pt reports being short of breath, has labored breathing, pitting edema to arms, abdomen, and legs. Coronavirus screen: At this time, the client does not indicate any symptoms associated with coronavirus-19. Ebola Screen: No symptoms or risks identified at this time. Initial Sepsis Screen: Does the patient meet any 2 criteria? RR > 20 per min. Temp <36.0*C (96.8*F)) or > 38.3*C (100.9*F). HR > 90 bpm. Yes Does the patient have a suspected source of infection? Yes: Acute abdominal pain. Risk Assessment: Do you want to hurt yourself or someone else? Patient reports no desire to harm self or others. Onset of symptoms was December 29, 2021. Transition of care: patient was not received from another setting of care. 02:13 Method Of Arrival: EMS: [facility] jb4 02:13 Acuity: JAIDA 2 jb4 Triage Assessment: 09:30 General:. 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 - Social history:: Smoking status: unknown. Screenin:32 Abuse screen: Denies threats or abuse. Denies injuries from another. Nutritional ko1 screening: No deficits noted. Tuberculosis screening: No symptoms or risk factors identified. Fall Risk Secondary diagnosis (15 points) impaired mobility, CHF. IV access (20 points). Assessment: 02:00 General: Appears distressed, uncomfortable, ill, Behavior is cooperative, anxious. jb4 Pain: Complains of pain in abdomen, pelvis, right leg and left leg Pain does not radiate. Pain currently is 10 out of 10 on a pain scale. Neuro: Level of Consciousness is awake, alert, obeys commands, Oriented to person, place, time, situation. Cardiovascular: Patient's skin is warm and dry. Respiratory: Airway is patent Respiratory effort is even, labored, Respiratory pattern is symmetrical, tachypnea. GI: Abdomen is round distended, Abd is soft X 4 quads Abdomen is tender to palpation X 4 quads. : Swelling noted. Derm: Skin is intact, Skin is dry, Skin is normal, Skin temperature is cool. Musculoskeletal: Circulation, motion, and sensation intact. Range of motion: intact in all extremities. 03:00 Reassessment: Pt continues to have labored breathing while on bi-pap. Respirations are jb4 more relaxed. pt reports feeling better and being able to breath better. 04:00 Reassessment: Patient appears in no apparent distress at this time. No changes from jb4 previously documented assessment. Patient and/or family updated on plan of care and expected duration. Pain level reassessed. 05:00 Reassessment: No changes from previously documented assessment. Patient and/or family jb4 updated on plan of care and expected duration. Pain level reassessed. 05:52 Reassessment: Pt reports that he feels like the bi-pap is not working. RT notified, RT jb4 at the bedside. 06:55 Reassessment: Pt reports increased difficulty breathing with bi-pap on. unable to jb4 obtain pulse ox reading with multiple different pulse ox device in different areas. RT called to bedside. Attempting ABG. Wheezes and rhonchi noted DAGMAR. 08:32 Reassessment: No changes from previously documented assessment. ko1 Vital Signs: 02:13 BP 70 / 56; Pulse 95; Resp 33; Temp 94.4(TE); Pulse Ox 95% on R/A; Pain 10/10; jb4 02:29 Temp 96.9(R); jb4 03:15 BP 90 / 71; Pulse 85; Resp 18; Pulse Ox 94% on BiPAP; jb4 03:30 BP 103 / 87; Pulse 85; Resp 22 A; jb4 04:03 BP 78 / 54; Pulse 80; Resp 19; Pulse Ox 96% on BiPAP; Weight 77.1 kg (M); jb4 05:15 BP 124 / 79; Pulse 95; Resp 21 A; Pulse Ox 95% on BiPAP; jb4 05:40 BP 99 / 69; Pulse 94; Resp 19 A; jb4 06:54 BP 121 / 72; Pulse 87; Resp 21 A; jb4 08:00 BP 87 / 79; Pulse 84; Resp 22; Temp 99.2; Pulse Ox 100% on BiPAP; ko1 09:30 BP 95 / 57; Pulse 92; Resp 18; Pulse Ox 96% ; ko1 03:30 unable to obtain pulse ox jb4 05:40 unable to obtain pulse ox jb4 06:54 Unable to obtain pulse ox jb4 Vitals: 08:32 Cardiac Rhythm Assessment Sinus rhythm W/unifocal PVC's. ko1 ED Course: 01:41 Patient arrived in ED. ms3 02:00 Initial lab(s) drawn, by me, sent to lab. Inserted saline lock: 20 gauge in right jb4 antecubital area, using aseptic technique. Blood collected. 02:13 Maximus Angel, RN is Primary Nurse. jb4 02:15 Triage completed. jb4 02:17 XRAY Chest (1 view) In Process Unspecified. EDMS 02:47 Emilio Singh DO is Attending Physician. ms3 03:10 Assisted provider with central line placement. Set up central line tray. Triple lumen jb4 line placed in left internal jugular. Line placed by Emilio Singh DO Placement verified by blood return, Dressed with Tegaderm, Blood was collected. Patient tolerated well. 03:20 Arm band placed on right wrist. jb4 03:49 US Scrotum Testicles In Process Unspecified. EDMS 04:31 Notified ED physician of a critical lab result(s). troponin of 86.7 Dr Singh notified. bb 04:45 Zayas cath inserted, using sterile technique, 16 Fr., by me, balloon inflated, to jb4 gravity drainage, urine specimen collected. returned cloudy urine. Patient tolerated well. 05:03 Abdomen In Process Unspecified. EDMS 05:57 Roxann Block MD is Hospitalizing Provider. ms3 06:49 Initiated transfer to [facility]. wm 07:19 Attending Physician role handed off by Emilio Singh DO manuel 07:19 Larry Whiteside MD is Attending Physician. manuel 07:23 initiated transfer to [facility]. bd 08:25 COVID-19 SARS RT PCR (Document "Date of Onset" if Symptomatic) Sent. ko1 08:30 Patient maintains SpO2 saturation greater than 95% on room air. ko1 08:32 Patient has correct armband on for positive identification. Placed in gown. Bed in low ko1 position. Call light in reach. Side rails up X2. Adult w/ patient. Client placed on continuous cardiac and pulse oximetry monitoring. NIBP monitoring applied. project administrator on. Turned to right side. Oral care given. 08:32 Report given to Raya Rock RN at [facility]. ko1 08:32 IV is patent, is intact, Flushed left internal jugular central line with 5 ml normal ko saline. 08:45 Awaiting transportation. ko1 09:30 EMS here to transfer patient, no family at bedside, attempted to locate without success.ko1 Administered Medications: 03:33 Drug: Albumin 25 grams {Note: Central line left IJ.} Volume: 100 ml; Route: IVPB; Site: jb4 Other; 04:13 Drug: Levophed (norepinephrine) 0.1 mcg/kg/min {Note: Central line Left IJ white port.} jb4 Route: IV; Rate: calculated rate; Site: Other; 09:37 Follow up: Rate change 0.05 mcg/kg/min ko1 06:20 Drug: Rocephin (cefTRIAXone) 1 grams {Note: left IJ central line.} Route: IV; Rate: jb4 calculated rate; Site: Other; 07:53 Drug: Vitamin K1 (phytonadione) 10 mg Route: Sub-Q; Site: right lower abdomen; ko1 07:57 Drug: ProTONIX (pantoprazole) 40 mg Route: IVP; Site: left subclavian; ko1 Medication: 08:32 VIS not applicable for this client. ko1 Outcome: 05:58 Decision to Hospitalize by Provider. ms3 06:22 ER care complete, transfer ordered by . ms3 08:45 Transferred by ground EMS to [facility], Transfer form completed. ko1 X-rays sent w/ patient. 08:45 critical 08:45 Discharge instructions given to EMS, Instructed on the need for transfer, Demonstrated understanding of instructions. 08:45 Critical Care visit due to 09:38 Patient left the ED. ko1 Signatures: Dispatcher [employer] EDMS Janet Moncada Corey, MD MD cha Ballard, Brenda, RN RN Maxmius Sanchez RN RN jb4 Emilio Singh DO DO ms3 Kortney Medina Sarah [place] RN RN ko1 Corrections: (The following items were deleted from the chart) 03:41 03:30 BP 90 / 71; Pulse 85bpm; Resp 18bpm; Pulse Ox 94% BiPAP; [place] [id number] 05:19 04:03 BP 78 / 54; Pulse 80bpm; Resp 19bpm; Pulse Ox 93% BiPAP; 77.1 kg Measured; [place] [id number] 05:21 05:15 BP 124 / 79; Pulse 95bpm; Resp 21bpm; Assisted; [facility] 06:55 03:30 BP 103 / 87; Pulse 85bpm; Resp 22bpm; Assisted; [facility] jb4 06:55 05:40 BP 99 / 69; Pulse 94bpm; Resp 19bpm; [facility]
--- NOTE | 2021-12-29 05:58 | EDPHYS ---
Physician Documentation [facility] Name: Jayant Alamo Age: 61 yrs Sex: Male : 1960 Arrival Date: 12/29/2021 Time: 01:41 Bed 17 Private MD: ED Physician Larry Whiteside HPI: 12/29 07:04 This 61 yrs old Black Male presents to ER via EMS with complaints of abdominal pain and ms3 scrotum swelling. 07:04 61-year-old male with past medical history of heart problems, hyperlipidemia, ms3 hypertension, stomach cancer presents for abdominal pain and scrotal swelling for 2 days. Patient states his pain is 10/10 described as aching. Patient denies alleviating or inciting factors. Patient endorses shortness of breath.. 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 - Social history:: Smoking status: unknown. ROS: 07:32 Constitutional: Negative for fever, and chills. Neck: Negative for injury, pain, and ms3 swelling, Cardiovascular: Negative for chest pain, and palpitations. 07:32 Neuro: Negative for headache, weakness, numbness, tingling. Psych: Negative for depression, anxiety, suicide ideation, homicidal ideation, and hallucinations. 07:32 Respiratory: Positive for shortness of breath. 07:32 Abdomen/GI: Positive for abdominal pain. 07:32 All other systems are negative. Exam: 02:24 ECG was reviewed by the Attending Physician. ms3 07:32 Constitutional: This is a well developed, well nourished patient who is awake, alert, ms3 and in no acute distress. Head/Face: Normocephalic, atraumatic. 07:32 ENT: Nares patent. No nasal discharge, no septal abnormalities noted. Tympanic membranes are normal and external auditory canals are clear. Oropharynx with no redness, swelling, or masses, exudates, or evidence of obstruction, uvula midline. Mucous membranes moist. Neck: Trachea midline, no cervical lymphadenopathy. Supple, full range of motion without nuchal rigidity, or vertebral point tenderness. No Meningismus. Chest/axilla: Normal chest wall appearance and motion. Nontender with no deformity. Cardiovascular: Regular rate and rhythm with a normal S1 and S2. No gallops, murmurs, or rubs. Normal PMI, no JVD. No pulse deficits. 07:32 Eyes: Conjunctiva: icteric. 07:32 Respiratory: moderate respiratory distress is noted, Respirations: labored breathing, that is moderate, Breath sounds: rales. 07:32 Abdomen/GI: Inspection: abdomen appears normal, Bowel sounds: normal, Palpation: abdomen is soft and non-tender, moderate abdominal tenderness, in all quadrants, Abdominal wall edema present. 07:32 : Male external genitalia: swelling, penile, scrotal, testicle, that is severe. 07:32 Musculoskeletal/extremity: Extremities: grossly normal except: noted in the left leg and right leg: swelling, tenderness. Vital Signs: 02:13 BP 70 / 56; Pulse 95; Resp 33; Temp 94.4(TE); Pulse Ox 95% on R/A; Pain 10/10; jb4 02:29 Temp 96.9(R); jb4 03:15 BP 90 / 71; Pulse 85; Resp 18; Pulse Ox 94% on BiPAP; jb4 03:30 BP 103 / 87; Pulse 85; Resp 22 A; jb4 04:03 BP 78 / 54; Pulse 80; Resp 19; Pulse Ox 96% on BiPAP; Weight 77.1 kg (M); jb4 05:15 BP 124 / 79; Pulse 95; Resp 21 A; Pulse Ox 95% on BiPAP; jb4 05:40 BP 99 / 69; Pulse 94; Resp 19 A; jb4 06:54 BP 121 / 72; Pulse 87; Resp 21 A; jb4 08:00 BP 87 / 79; Pulse 84; Resp 22; Temp 99.2; Pulse Ox 100% on BiPAP; ko1 09:30 BP 95 / 57; Pulse 92; Resp 18; Pulse Ox 96% ; ko1 03:30 unable to obtain pulse ox jb4 05:40 unable to obtain pulse ox jb4 06:54 Unable to obtain pulse ox jb4 MDM: 01:57 Patient medically screened. kb 05:55 ED course: Patient meets septic shock criteria at this time. 100 mL of Albumin given ms3 instead of 30 mL/kg IVF as patient is volume overloaded with anasarca present. A. UTI B. RR >20, HR >90 C. LA >4. Blood cx obtained. Rocephin ordered. . 05:56 ED course: Sepsis re-evaluation completed. Patient currently on Levophed. ms3 07:03 ED course: [facility] program coordinator states [place] they [place] [facility]. They ms3 are in shift change and it may take a while.. 07:19 Patient medically screened. amnuel 07:32 Data reviewed: vital signs, nurses notes, lab test result(s), EKG, radiologic studies, ms3 and as a result, I will transfer to higher level of care. Data interpreted: engine monitor: rate is 88 beats/min, rhythm is normal sinus rhythm, with no ectopy, Interpretation: normal rate, normal rhythm. Counseling: I had a detailed discussion with the patient and/or guardian regarding: the historical points, exam findings, and any diagnostic results supporting the discharge/admit diagnosis, lab results, radiology results, the need to transfer to another facility. 12/29 01:50 Order name: CBC with Diff; Complete Time: 05:50 kb 12/29 01:50 Order name: Magnesium; Complete Time: 05:50 kb 12/29 01:50 Order name: NT PRO-BNP; Complete Time: 05:50 kb 12/29 01:50 Order name: PT-INR; Complete Time: 03:56 kb 12/29 01:50 Order name: Troponin HS; Complete Time: 05:50 kb 12/29 01:55 Order name: Blood Culture Adult (2) kb 12/29 01:55 Order name: Lactate; Complete Time: 04:22 kb 12/29 02:12 Order name: ABG; Complete Time: 03:56 kb 12/29 02:20 Order name: Comprehensive Metabolic Panel; Complete Time: 05:50 EDMS 12/29 01:50 Order name: XRAY Chest (1 view) kb 12/29 02:12 Order name: BIPAP kb 12/29 02:19 Order name: US Scrotum Testicles kb 12/29 02:20 Order name: Lipase; Complete Time: 05:50 EDMS 12/29 02:20 Order name: PTT, Activated Partial Thromb; Complete Time: 03:56 EDMS 12/29 04:08 Order name: CBC Smear Scan; Complete Time: 05:50 EDMS 12/29 04:57 Order name: Urine Dipstick-Ancillary; Complete Time: 05:50 EDMS 12/29 04:57 Order name: Urine Microscopic Only; Complete Time: 05:50 ds4 12/29 04:57 Order name: Urine Culture ds4 12/29 05:03 Order name: Abdomen EDMS 12/29 07:27 Order name: ABG Arterial Blood Gas; Complete Time: 07:33 EDMS 12/29 01:50 Order name: EKG; Complete Time: 01:51 kb 12/29 01:50 Order name: Cardiac monitoring; Complete Time: 02:44 kb 12/29 01:50 Order name: EKG - Nurse/Tech; Complete Time: 02:44 kb 12/29 01:50 Order name: IV Saline Lock; Complete Time: 05:11 kb 12/29 01:50 Order name: Labs collected and sent; Complete Time: 03:17 kb 12/29 01:50 Order name: O2 Per Protocol; Complete Time: 02:44 kb 12/29 01:50 Order name: O2 Sat Monitoring; Complete Time: 02:44 kb 12/29 01:55 Order name: Accucheck; Complete Time: 05:11 kb 12/29 01:55 Order name: IV Saline Lock - Large Bore; Complete Time: 03:22 kb EC:24 Rate is 87 beats/min. Rhythm is regular. QRS [place] is Normal. Left axis deviation noted. ms3 MO interval is normal. QRS interval is normal. Clinical impression: NSR w/ Non-specific ST/T Changes. Interpreted by me. Reviewed by me. Administered Medications: 03:33 Drug: Albumin 25 grams {Note: Central line left IJ.} Volume: 100 ml; Route: IVPB; Site: jb4 Other; 04:13 Drug: Levophed (norepinephrine) 0.1 mcg/kg/min {Note: Central line Left IJ white port.} jb4 Route: IV; Rate: calculated rate; Site: Other; 09:37 Follow up: Rate change 0.05 mcg/kg/min ko1 06:20 Drug: Rocephin (cefTRIAXone) 1 grams {Note: left IJ central line.} Route: IV; Rate: jb4 calculated rate; Site: Other; 07:53 Drug: Vitamin K1 (phytonadione) 10 mg Route: Sub-Q; Site: right lower abdomen; ko1 07:57 Drug: ProTONIX (pantoprazole) 40 mg Route: IVP; Site: left subclavian; ko1 Disposition Summary: 12/29/21 06:22 Transfer Ordered Transfer Location: [facility] ms3 Reason: Higher level of care ms3 Condition: Serious(12/29/21 06:22) ms3 Problem: new(12/29/21 06:22) ms3 Symptoms: are unchanged(12/29/21 06:22) ms3 Accepting Physician: (12/29/21 09:38) ko1 Diagnosis - Severe sepsis with septic shock(12/29/21 06:22) ms3 - Anasarca ms3 - Thrombocytopenia, unspecified ms3 - Acute respiratory failure ms3 - Hypo-osmolality and hyponatremia ms3 - Heart failure, unspecified ms3 - Elevated Troponin ms3 - Lactic acidosis ms3 - Acute Kidney Injury ms3 - Hyper bilirubinemia ms3 - Hepatic failure, unspecified without coma manuel Forms: - Medication Reconciliation Form ms3 - SBAR form ms3 Signatures: Dispatcher [employer] EDMS Janine Taylor, PROCESS CHEMIST-C PROCESS CHEMIST-Ckb Larry Whiteside MD MD cha Bryson, James, RN RN jb4 Emilio Singh DO DO ms3 Sarah Madisno, RN RN ko1 Corrections: (The following items were deleted from the chart) 01:58 01:50 BASIC METABOLIC PANEL+C.LAB.BRZ ordered. EDMS EDMS 01:58 01:50 HEPATIC FUNCTION+C.LAB.BRZ ordered. EDMS EDMS 02:20 01:55 COMPREHENSIVE METABOLIC PANEL+C.LAB.BRZ ordered. EDMS EDMS 02:20 01:55 PTT, ACTIVATED+COAG.LAB.BRZ ordered. EDMS EDMS 02:20 01:57 LIPASE+C.LAB.BRZ ordered. EDMS EDMS 05:03 03:37 Abdomen Pelvis W Con+CT.RAD.BRZ ordered. EDMS EDMS 05:54 05:51 ED course: Patient meets septic shock criteria at this time. IVF not given ms3 secondary to patient . ms3 05:56 05:51 ED course: Patient meets septic shock criteria at this time. 100 mL of Albumin ms3 given instead of 30 mL/kg IVF as patient is volume overloaded with anasarca present. A. UTI B. RR >20, HR >90 C. LA >4. Blood cx obtained. . ms3 06:19 05:58 Inpatient Admission ms3 ms3 06:19 05:58 Roxann Block ms3 ms3 06:19 05:58 Intensive Care Unit ms3 ms3 06:19 05:58 Stable ms3 ms3 06:19 05:58 new ms3 ms3 06:19 05:58 are unchanged ms3 ms3 06:19 05:58 Standard ms3 ms3 06:19 05:58 ms3 ms3 06:19 05:58 Severe sepsis with septic shock ms3 ms3 06:19 05:58 Anasarca ms3 ms3 06:19 05:58 Respiratory failure ms3 ms3 06:19 05:58 UTI ms3 ms3 06:24 06:22 ms3 ms3 07:32 07:04 61-year-old male with past medical history of heart problems, hyperlipidemia, ms3 hypertension, stomach cancer presents for abdominal pain and scrotal swelling for 2 days. Patient states his pain is 10/10 described as aching. Patient denies alleviating or inciting factors. Patient endorses shortness of breath.. msEladio 09:14 06:24 Dr ryder manuel 09:38 09:14 Dr manuel de los santos1
[2021-12-29] MEDS ORDERED: CEFTRIAXONE 1000 MG/VIAL ONE (06:16)
[2021-12-29 07:26] LABS: Arterial Blood Carboxyhemoglob 0.4 % (0-1.5); Blood Gas Oxyhemoglobin 97.8 % (94-97); Blood O2 Saturation 99.5 % (92-98.5)
[2021-12-29] MEDS ORDERED: PANTOPRAZOLE 40 MG INJ ONE (07:57)
[2021-12-29] MEDS ORDERED: VITAMIN K (ADULT) 10 MG/ML ONE (08:00)
[2021-12-29] MEDS ORDERED: D5W 250 ML IV ONE (09:36)
--- NOTE | 2021-12-29 19:09 | RAD REPORT ---
EXAM DESCRIPTION: CT - Abdomen Pelvis Wo Contrast - 12/29/2021 5:03 am CLINICAL HISTORY: The patient is 61 years old and is Male; abdominal pain TECHNIQUE: Axial computed tomography images of the abdomen and pelvis without intravenous contrast. Sagittal and coronal reformatted images were created and reviewed. This CT exam was performed usi ng one or more of the following dose reduction techniques: automated exposure control, adjustment o f the mA and/or kV according to patient size, and/or use of iterative reconstruction technique. COMPARISON: May 18, 2020. FINDINGS: Lung bases: Unremarkable. No mass. No consolidation. Pleural space: Bilateral pleural effusions, right greater than left. ABDOMEN: Liver: Unremarkable. Gallbladder and bile ducts: Unremarkable. No calcified stones. No ductal dilation. Pancreas: Unremarkable. No ductal dilation. Spleen: Unremarkable. No splenomegaly. Adrenals: Unremarkable. No mass. Kidneys and ureters: Left nephrolithiasis without hydronephrosis. Stomach and bowel: Prior gastric surgery. No bowel dilatation or obstruction. No bowel wall thickening. PELVIS: Appendix: The visualized appendix is normal. No pericecal inflammation to suggest acute appendici tis. Bladder: Zayas catheter in the bladder. No stones. Reproductive: Unremarkable as visualized. ABDOMEN and PELVIS: Intraperitoneal space: Unremarkable. No free air. No significant fluid collection. Bones/joints: Degenerative changes in the lumbar spine. No acute fracture visualized. No dislocation. Soft tissues: Marked diffuse subcutaneous edema. Vasculature: Unremarkable. No abdominal aortic aneurysm. Lymph nodes: No pathologically enlarged lymph nodes. Tubes, lines and devices: Intracardiac defibrillator lead. Cardiomegaly. Small amount of pericard ial fluid. IMPRESSION: 1. No bowel obstruction or findings to suggest colitis/enteritis. 2. Left nephrolithiasis without hydronephrosis. 3. Prior gastric surgery. 4. Bilateral pleural effusions, right greater than left. 5. Marked diffuse subcutaneous edema. 6. Zayas catheter in the bladder. 7. Additional non-emergent findings as above. Electronically signed by: Libby Cobos MD 12/29/2021 5:24 AM CDT Due to temporary technical issues with the PACS/Fluency reporting system, reports are being signed by the in house radiologists without review as a courtesy to insure prompt reporting. The interpreting radiologist is fully responsible for the content of the report.
--- NOTE | 2021-12-29 19:14 | RAD REPORT ---
EXAM DESCRIPTION: US - Scrotum Testicles - 12/29/2021 3:47 am CLINICAL HISTORY: 61 years Male Pain TECHNIQUE: Sagittal and transverse ultrasound imaging and measurement of bilateral testicles with co dominic flow was performed on 12/29/2021 at 3: 29 AM. Comparison: No prior studies were available for comparison.. FINDINGS: Limitations: Technically challenging examination as the patient was in severe pain through out the examination and was moving. The right testicle measures 3.7 x 2.4 x 1.9 cm and is homogeneous in echogenicity. No focal masses are identified. The right epididymis is not well visualized. Doppler imaging demonstrates normal fl ow in the right testicle . There is a right sided hydrocele with some floating internal debris. There also appears to be soft tissue swelling surrounding the right testicle. The left testicle measures 3.3 x 2.2 x 2.0 cm and is homogeneous in echogenicity. No focal masses are identified. The left epididymis is not well visualized. Doppler imaging demonstrates normal flow in the left testicle. There is a left-sided hydrocele with some floating internal debris. There is also a 1.5 x 1.7 x 1.3 cm cyst within the hydrocele. There also appears to be soft tissue swelling surroun ding the left testicle. No definite varicocele is appreciated. No images were obtained during Valsalva. IMPRESSION: 1. Grossly normal sonographic evaluation of the testicles. There is no evidence of vernon ticular torsion or intratesticular mass lesion. 2. Small bilateral hydroceles with some floating internal debris. There is an approximately 1.7 cm cystic structure within the left hydrocele. 3. The epididymal structures are not well visualized on this examination. 4. There appears to be soft tissue swelling surrounding the testicles bilaterally. 5. As per the technologist, the examination was technically challenging due to severe pain and celsa ent motion during the examination. Electronically signed by: Porsha Pacheoc DO 12/29/2021 4:19 AM CDT Due to temporary technical issues with the PACS/Fluency reporting system, reports are being signed by the in house radiologists without review as a courtesy to insure prompt reporting. The interpreting radiologist is fully responsible for the content of the report.
--- NOTE | 2021-12-30 12:59 | RAD REPORT ---
EXAM DESCRIPTION: RAD - Chest Single View - 12/29/2021 2:15 am CLINICAL HISTORY: SWELLING TECHNIQUE: Frontal view of the chest. COMPARISON: No relevant prior studies available. FINDINGS: Lungs: Patchy bibasilar opacities. Pleural space: Small to moderate right and small left pleural effusions. No pneumothorax. Heart: The cardiac silhouette is enlarged. Mediastinum: Unremarkable. Bones/joints: Unremarkable. Tubes, lines and devices: Left chest wall single lead pacer. Right chest wall Mediport catheter. IMPRESSION: Bilateral pleural effusions, right greater than left and underlying consolidation (atele ctasis and/or infiltrate). Electronically signed by: Coco Kaplan MD 12/29/2021 2:33 AM CDT Due to temporary technical issues with the PACS/Fluency reporting system, reports are being signed by the in house radiologists without review as a courtesy to insure prompt reporting. The interpreting radiologist is fully responsible for the content of the report.
--- NOTE | 2021-12-30 13:41 | EKG ---
Test Date: 2021-12-29 Test Time: 02:24:55 Java Support Engineer: JJ MEASUREMENT RESULTS: Intervals: Rate: 87 OR: 152 QRSD: 98 QT: 402 QTc: 483 Dunbar: P: 5 OR: 152 QRS: -46 T: 122 INTERPRETIVE STATEMENTS: Normal sinus rhythm Possible Left atrial enlargement Left anterior fascicular block Cannot rule out Anterior infarct, age undetermined Abnormal ECG Compared to ECG 04/09/2020 03:50:22 Left anterior fascicular block now present Myocardial infarct finding now present Fusion complex(es) no longer present T-wave abnormality no longer present Possible ischemia no longer present Prolonged QT interval no longer present Electronically Signed On 12-30-21 13:38:40 CDT by Jeremie Washington
[2021-12-30 16:18] VITALS: TEMP 99.2
[2021-12-30 16:19] VITALS: BP 95/57; O2SAT 96
== END 2021-12-29 09:38 | disposition short-term general hospital (02) ==
LOC: ER 01:34
DX: R10.9 Unspecified abdominal pain (principal); R65.21 Severe sepsis with septic shock; K72.00 Acute and subacute hepatic failure without coma; N17.9 Acute kidney failure, unspecified; R60.1 Generalized edema; J96.00 Acute respiratory failure, unspecified whether with hypoxia or hypercapnia; D69.6 Thrombocytopenia, unspecified; E87.1 Hypo-osmolality and hyponatremia; R77.8 Other specified abnormalities of plasma proteins; E80.6 Other disorders of bilirubin metabolism; I50.9 Heart failure, unspecified; E87.2 Acidosis; C16.9 Malignant neoplasm of stomach, unspecified; Z95.0 Presence of cardiac pacemaker
CPT/HCPCS: 87040 ×2; 87088; 85025; 87086; 36415; 83735; 85610; 83605; 85730; 84484; 83690; 80053; 83880; 74176; 71045; 76870; 82805 ×2; J3430; C9113; P9047; J7060; 81003; 81015; 93005